=== PATIENT | female | born 1945 | race Caucasian/White ===

== ENCOUNTER 2017-10-20 06:11 | Day surgery (SDC) | payer MEDICARE ==
[~2017-10-20] VITALS: Ht 157.5 cm; Wt 60.0 kg
[2017-10-20 06:40] VITALS: BP 133/83; PULSE 65; RESP 20; TEMP 98.1; O2SAT 96
[2017-10-20] MEDS ORDERED: POVIDONE IODINE 5% (ANTISEPSIS KIT) 4 APPLICATIONS EACH NARE SCH (07:15)
[2017-10-20] MEDS ORDERED: SODIUM CHLORIDE 0.9% 1000 ML IV SCH (07:15)
[2017-10-20] MEDS ORDERED: ceFAZolin 2 GM PREMIX 50 ML - implanted port/tunneled catheter insertion IV SCH (07:15)
[2017-10-20] MEDS ORDERED: CHLORHEXIDINE GLUCONATE 2 % 1 PACK (2 CLOTHS) TOPICAL SCH (07:15)
[2017-10-20] MEDS ORDERED: VANCOMYCIN 1000 MG/NS 250 ML - implanted port/tunneled catheter IV SCH ×2 (07:15)
[2017-10-20 07:17] LABS: AUTOMATED NEUTROPHIL # 8.3 TH/MM3 (1.8-7.7); BASOPHIL # 0.1 TH/MM3 (0-0.2); BASOPHIL % 0.8 % (0.0-2.0); EOSINOPHIL # 0.1 TH/MM3 (0-0.4); EOSINOPHIL % 0.5 % (0.0-4.0); HEMATOCRIT 38.3 % (35.0-46.0); LYMPH % 16.7 % (9.0-44.0); LYMPHOCYTE # 1.9 TH/MM3 (1.0-4.8); MEAN CELL VOLUME 92.4 FL (80.0-100.0); MEAN CORPUSCULAR HEMOGLOBIN 30.8 PG (27.0-34.0); MEAN CORPUSCULAR HGB CONC 33.4 % (32.0-36.0); MONO % 9.7 % (0.0-8.0); NEUT % 72.3 % (16.0-70.0); PLATELET COUNT 239 TH/MM3 (150-450); RED BLOOD COUNT 4.15 MIL/MM3 (4.00-5.30); RED CELL DISTRIBUTION WIDTH 14.8 % (11.6-17.2); WHITE BLOOD COUNT 11.5 TH/MM3 (4.0-11.0)
[2017-10-20 07:20] LABS: HEMO FLAGS AUTO DIFF
[2017-10-20] MEDS ORDERED: MIDAZOLAM HCL 2 MG/2 ML VIAL ONE (07:39)
[2017-10-20] MEDS ORDERED: LIDOCAINE 1%/EPINEPHrine 1:100,000 SOLN 20 ML VIAL ONE (07:51)
[2017-10-20 07:56] LABS: BANDS 3 % (0-6); METAMYELOCYTES 3 % (0-1); NEUTROPHIL # MANUAL DIFF 8.6 TH/MM3 (1.8-7.7); PLATELET ESTIMATE SMEAR NORMAL (NORMAL); PLATELET MORPHOLOGY NORMAL (NORMAL); POLYS (SEG NEUTROPHILS) 69 % (16-70); SCAN/DIFF FINAL DIFF MANUAL; WBC DIFF SAMPLE 100
[2017-10-20 08:50] VITALS: BP 106/72; PULSE 79; RESP 18; TEMP 97.5; O2SAT 96
[2017-10-20 09:05] VITALS: BP 97/64; PULSE 65; RESP 20; O2SAT 96
--- NOTE | 2017-10-20 09:05 | RADRPT ---
EXAM DATE/TIME: 10/20/2017 08:49 [facility] COMPARISON: No previous studies available for comparison. INDICATIONS : Patient with a history of metastatic melanoma, needs chemotherapy. MEDICAL HISTORY : Anxiety Metastatic melanoma Migraine SURGICAL HISTORY : Facial plastic surgery Biopsy in 2017 Colonoscopy in 2009 ENCOUNTER: Initial ACUITY: 1 month PAIN SCORE: 2/10 LOCATION: Left shoulder FLUORO TIME: 0.4 minutes IMAGE SERIES: 1 SEDATION TIME: 30 minutes ACCESS: Right internal jugular vein SEDATION: 1.) 2.5 mg midazolam (Versed) IV 2.) 125 mcg fentanyl (Sublimaze) IV Prophylactic antibiotics were administered with appropriate pre-procedure timing. Vancomycin within 2 hours of procedure, Ancef (or alternative) within 1 hour of procedure. DEVICE: 1. 8 Faroese single lumen Power port PROCEDURE : 1. Continuous pulse oximetry and EKG monitoring. 2. Intravenous conscious sedation. 3. Ultrasound guidance for venous access. 4. Fluoroscopic guided implantable central venous port placement. The patient was placed supine. The neck was prepped in sterile fashion. Full sterile technique was u sed, including cap, mask, sterile gloves and gown, and a large sterile sheet. Hand hygiene and 2% ch lorhexidine Betadine was utilized per protocol for cutaneous antisepsis with appropriate dry time for site. Sterile gel and sterile probe cover were utilized for ultrasound guidance. The skin and sub cutaneous tissues were infiltrated with local anesthetic solution. Under direct ultrasound guidance, central venous access was accomplished in the targeted vessel. The ultrasound images depicting access guidance were stored and saved to PACS for permanent record. A s ubcutaneous pocket was created using blunt dissection. The port was introduced to the pocket. The c atheter tubing was fed through a subcutaneous tunnel to the venotomy site. The catheter tubing was c ut to a suitable length and then was introduced through a valved Peel-Away sheath and positioned with catheter tubing tip at the cavo-atrial junction level. The pocket incision was closed with subcutic ular Vicryl suture. Steri-Strips were applied. The port was flushed and locked with heparin solutio n per protocol. Sterile dressing was applied to the site. The patient tolerated the procedure well. Conscious sedation was performed with the prescribed dosages and duration as above in the presence of an independent trained radiology nurse to assist in the monitoring of the patient. EKG and oximetry remained stable throughout the procedure. The patient tolerated the procedure well and there were no complications. The patient was sent to post anesthesia recovery in stable condition. CONCLUSION: Uncomplicated ultrasound and fluoroscopic guided implanted central venous port catheter placement as described in detail above. An 8 Faroese Power port was placed. Cogn Norman MD on October 20, 2017 at 9:03 Board Certified Radiologist. This report was verified electronically.
[2017-10-20 09:35] VITALS: BP 98/60; PULSE 63; RESP 20; O2SAT 97
--- NOTE | 2017-10-20 09:49 | PD.RAD ---
Post Procedure Progress Note Pre Procedure Diagnosis: (1) Melanoma Post Procedure Diagnosis: (1) Melanoma Procedure Date: Oct 20, 2017 Supervising Radiologist: Cong Norman Proceduralist/Assist: Peggy Yang, RT(R)(), Koki Salgado RT(R) Anesthesia: Conscious Sedation Plan of Activity Patient to Unit: ROPU Patient Condition: Good See PACS Report for procedural detail/treatment Central Venous Access Device Procedure 1 Right Internal Jugular Infusaport Placement single lumen Cong Norman MD Oct 20, 2017 09:49
[2017-10-20] MEDS ORDERED: SODIUM CHLORIDE 0.9% FLUSH 10 ML FLUSH IVF PRN (10:00)
[2017-10-20 10:05] VITALS: BP 95/66; PULSE 65; RESP 20; O2SAT 97
[2017-10-20 10:35] VITALS: BP 110/75; PULSE 67; RESP 20; O2SAT 97
== END 2017-10-20 11:10 | disposition home or self-care (01) ==
LOC: HROP 06:11 → HRIP 06:16 → HROP 11:10
PROVIDERS: ATTEND Internal Medicine
DX: Z45.2 Encounter for adjustment and management of vascular access device (principal); C43.9 Malignant melanoma of skin, unspecified; F41.9 Anxiety disorder, unspecified
CPT/HCPCS: 36561; 76937; 77001; 85007; 85027; 99152; 99153; C1788; J1642; J2250; J3010

== ENCOUNTER 2017-11-04 13:12 | Day surgery (SDC) | payer MEDICARE ==
[2017-11-04 13:30] VITALS: BP 109/67; PULSE 78; RESP 18; TEMP 98.4; O2SAT 98
[2017-11-04] MEDS ORDERED: TRAM2TAB PO (13:41)
[2017-11-04] MEDS ORDERED: DABR75CA PO (13:41)
[2017-11-04] MEDS ORDERED: LEVE500 PO (13:41)
--- NOTE | 2017-11-04 15:55 | RADRPT ---
EXAM DATE/TIME: 11/04/2017 15:50 [facility] COMPARISON: No previous studies available for comparison. INDICATIONS : PATIENT PRESENTS WITH PAIN FROM PORT PLACEMENT. MEDICAL HISTORY : Migraine High cholesterol Anxiety SURGICAL HISTORY : Craniotomy Chin Lift ENCOUNTER: Initial ACUITY: 1 month PAIN SCORE: 110 LOCATION: Right Port FLUORO TIME: .23 minutes IMAGE SERIES: 2 CONTRAST: 10 cc Omnipaque (iohexol) 350 ACCESS: Right port PROCEDURE : 1. Access of [id number]-[id number]-dpva. 2. Port patency injection. The risks, benefits and alternatives to the procedure were explained and verbal and written consent w as obtained. The patient was placed supine. The port was prepped in sterile fashion. Full sterile t echnique was used, including cap, mask, sterile gloves and gown, and a large sterile sheet. Hand hyg iene and 2% chlorhexidine prep was utilized per protocol for cutaneous antisepsis with appropriate dr y time for site. The previously placed port was accessed and positive contrast was injected for evaluation. Injection demonstrates a patent Rxvqgt-s-Bbyu without fibrin sheath. CONCLUSION: 1. Intact Wayqiv-b-Dqge Cong Norman MD on November 04, 2017 at 15:50 Board Certified Radiologist. This report was verified electronically.
== END 2017-11-04 14:30 | disposition home or self-care (01) ==
LOC: HROP 13:12 → HRIP 13:13 → HROP 14:30
PROVIDERS: ATTEND Internal Medicine
DX: Z45.2 Encounter for adjustment and management of vascular access device (principal); C43.9 Malignant melanoma of skin, unspecified
CPT/HCPCS: 36598; J1642

== ENCOUNTER 2017-11-12 12:38 | Day surgery (SDC) | payer MEDICARE ==
[~2017-11-12 12:38] MED LIST: DABR75CA PO; LEVE500 PO; TRAM2TAB PO
[2017-11-12 13:10] VITALS: BP 150/94; PULSE 90; RESP 20; TEMP 97.9; O2SAT 99
--- NOTE | 2017-11-12 14:10 | RADRPT ---
EXAM DATE/TIME: 11/12/2017 13:47 [facility] COMPARISON: No previous studies available for comparison. INDICATIONS : Post port placement. MEDICAL HISTORY : Brain cancer. SURGICAL HISTORY : Craniotomy. ENCOUNTER: Initial ACUITY: 1 day PAIN SCORE: 10 LOCATION: Right chest FINDINGS: A single frontal expiratory view of the chest was performed. The lungs are symmetrically aerated and clear. No evidence of pneumothorax. Mediastinal structures are in the midline. The cardio-mediastinal contours and bronchopulmonary markings are unremarkable for an expiratory exam . Osseous structures are intact. The port is in excellent position. CONCLUSION: 1. Fanqam-c-Exvx is in excellent position. 2. The lungs are clear. Fran Ireland MD on November 12, 2017 at 14:07 Board Certified Radiologist. This report was verified electronically.
== END 2017-11-12 14:45 | disposition home or self-care (01) ==
LOC: HROP 12:38 → HRIP 12:46 → HROP 14:45
PROVIDERS: ATTEND Internal Medicine
DX: Z45.2 Encounter for adjustment and management of vascular access device (principal); C79.31 Secondary malignant neoplasm of brain
CPT/HCPCS: 71010; G0463; 99213

== ENCOUNTER 2017-11-27 11:19 | Inpatient (IN) | payer MEDICARE ==
[~2017-11-27] VITALS: Ht 157.5 cm; Wt 71.5 kg
[2017-11-27] MEDS ORDERED: GADODIAMIDE PF 287 MG/ML 5 ML VIAL (for RAD MRI) IV PUSH ONE (11:20)
[2017-11-27 11:49] VITALS: BP 132/66; PULSE 118; RESP 29; TEMP 101.6; O2SAT 98
[2017-11-27] MEDS ORDERED: SODIUM CHLOR 0.9% 1000 ML INJ 1,000 ML IV ONE (12:05)
[2017-11-27] MEDS ORDERED: ACETAMINOPHEN 325 MG TAB PO ONE ×2 (12:15→15:30)
[2017-11-27] MEDS ORDERED: ONDANSETRON HCL 4 MG/2 ML VIAL IV PUSH ONE (12:15)
[2017-11-27 12:29] LABS: BASOPHIL % 0.5 % (0.0-2.0); HEMATOCRIT 37.4 % (35.0-46.0); HEMOGLOBIN 12.4 GM/DL (11.6-15.3); LYMPH % 13.7 % (9.0-44.0); LYMPHOCYTE # 0.5 TH/MM3 (1.0-4.8); MEAN CELL VOLUME 89.3 FL (80.0-100.0); MEAN CORPUSCULAR HEMOGLOBIN 29.7 PG (27.0-34.0); MEAN CORPUSCULAR HGB CONC 33.3 % (32.0-36.0); MEAN PLATELET VOLUME 8.6 FL (7.0-11.0); MONO % 7.9 % (0.0-8.0); MONOCYTE # 0.3 TH/MM3 (0-0.9); NEUT % 77.9 % (16.0-70.0); PLATELET COUNT 109 TH/MM3 (150-450); RED BLOOD COUNT 4.19 MIL/MM3 (4.00-5.30); RED CELL DISTRIBUTION WIDTH 14.5 % (11.6-17.2); WHITE BLOOD COUNT 3.9 TH/MM3 (4.0-11.0)
--- NOTE | 2017-11-27 12:37 | RADRPT ---
EXAM DATE/TIME: 11/27/2017 12:15 [facility] COMPARISON: No previous studies available for comparison. INDICATIONS : Fever, weakness, short of breath MEDICAL HISTORY : melanoma, brain cancer SURGICAL HISTORY : Craniotomy. [id number] ENCOUNTER: Initial ACUITY: 1 day PAIN SCORE: Non-responsive. LOCATION: Bilateral chest FINDINGS: A single view of the chest demonstrates the lungs to be symmetrically aerated without evidence of mas s, infiltrate or effusion. The cardiomediastinal contours are unremarkable. Osseous structures are intact. Hafrmt-g-Ynrk catheter tip in the distal superior vena cava. No evidence of pneumothorax. CONCLUSION: The lungs are clear. Juan Valentin MD on November 27, 2017 at 12:34 Board Certified Radiologist. This report was verified electronically.
--- NOTE | 2017-11-27 12:40 | PD ---
HPI Chief Complaint: Altered Mental Status Time Seen by Provider: 11:56 Travel History International Travel<30 days: No Contact w/Intl Traveler<30days: No Traveled to known affect area: No History of Present Illness HPI 72-year-old female that presents to the ED for evaluation of altered mental status. Patient has a history of stage IV melanoma that has metastasized to her brain as well as to her chest. Patient takes oral chemotherapy but no IV chemotherapy or radiation. Per patient she had surgery about a month ago for resection of one of the masses on the brain by Dr. Lugo. Per patient he was done here but I do not have any records of this. Patient follows with Dr. Andrade for oncology. Per family patient has been somewhat declining since his surgery but worse for the past 48 hours since she had a fall last night. Patient hit her head but did not lose consciousness. She does have a bruise to her left eye. She denies any blurry vision or double vision. She states compliance with her medications. She was seen on November [address] Lynch at the time they were concerned about the outer mental status and they wanted to do an MRI. MRI has not been done and patient had the fall. Because of patient's continued alteration family decided to bring the patient here for evaluation. Patient states having minimal pain on her head but she does state feeling nauseous. Per family members she's been very confused and having nausea and throwing up. She cannot keep anything down. She has an allergy to oxycodone. She denies any chest pain or abdominal pain. No urinary or bowel movement issues. No cough or runny nose. No shortness of breath or chest pain. She has not noted any fevers chills or sweats but she does appear to have a fever per our thermometer. She does have a history of brain masses the bleed and has had similar symptoms before last time in August when she was admitted for similar. PFSH Past Medical History Cancer: Yes (MELANOMA, BRAIN REMOVED) Cardiovascular Problems: Yes (MURMER) Diabetes: No Endocrine: No Genitourinary: No Hepatitis: No Hiatal Hernia: No Immune Disorder: No Musculoskeletal: Yes (WEAKNESS, TREMOR) Neurologic: No Psychiatric: No Reproductive: No Respiratory: No Thyroid Disease: No Past Surgical History Abdominal Surgery: No AICD: No Cardiac Surgery: No Ear Surgery: No Endocrine Surgery: No Eye Surgery: No Genitourinary Surgery: No Gynecologic Surgery: No Joint Replacement: No Oral Surgery: No Pacemaker: No Thoracic Surgery: No Social History Alcohol Use: No Tobacco Use: No Substance Use: No Allergies-Medications (Allergen,Severity, Reaction): Coded Allergies: oxycodone (Verified Allergy, Unknown, 11/27/17) nausea vomiting Reported Meds & Prescriptions Reported Meds & Active Scripts Active Reported Mekinist (Trametinib) 0.5 Mg Tab 2 Mg PO HS Tafinlar (Dabrafenib) 75 Mg Cap 75 Mg PO BID Keppra (Levetiracetam) 500 Mg Tab 500 Mg PO BID Review of Systems Except as stated in HPI: all other systems reviewed are Neg Physical Exam Narrative GENERAL: SKIN: Warm and dry. HEAD: Atraumatic. Normocephalic. EYES: Pupils equal and round 4 mm reactive to light and accommodation. No scleral icterus. No injection or drainage. ENT: No nasal bleeding or discharge. Mucous membranes pink and moist. Tongue is midline. No uvula deviation. NECK: Trachea midline. No JVD. CARDIOVASCULAR: Regular rate and rhythm. No murmurs, S3, S4. RESPIRATORY: No accessory muscle use. Clear to auscultation. Breath sounds equal bilaterally. GASTROINTESTINAL: Abdomen soft, non-tender, nondistended. Hepatic and splenic margins not palpable. MUSCULOSKELETAL: Extremities without clubbing, cyanosis, or edema. No obvious deformities. Full range of motion of the upper and lower extremities bilaterally. 2+ pulses bilaterally. NEUROLOGICAL: Awake and alert. No obvious cranial nerve deficits. Motor grossly within normal limits. Five out of 5 muscle strength in the arms and legs. Normal speech. PSYCHIATRIC: Appropriate mood and affect; insight and judgment normal. Data Data Last Documented VS Vital Signs Date Time Temp Pulse Resp B/P (MAP) Pulse Ox O2 Delivery O2 Flow Rate FiO2 11/27/17 11:51 118 16 98 Room Air 11/27/17 11:49 101.6 132/66 (88) Orders Orders Electrocardiogram (11/27/17 11:56) Complete Blood Count With Diff (11/27/17 11:56) Comprehensive Metabolic Panel (11/27/17 11:56) Ckmb (Isoenzyme) Profile (11/27/17 11:56) Troponin I (11/27/17 11:56) Prothrombin Time / Inr (Pt) (11/27/17 11:56) Act Partial Throm Time (Ptt) (11/27/17 11:56) Blood Culture (11/27/17 11:56) Urinalysis - C+S If Indicated (11/27/17 11:56) Magnesium (Mg) (11/27/17 11:56) Thyroid Stimulating Hormone (11/27/17 11:56) Chest, Single Ap (11/27/17 11:56) Iv Access Insert/Monitor (11/27/17 11:56) Ecg Monitoring (11/27/17 11:56) Oximetry (11/27/17 11:56) Lactic Acid Sepsis Protocol (11/27/17 11:56) Acetaminophen (Tylenol) (11/27/17 12:15) Ondansetron Inj (Zofran Inj) (11/27/17 12:15) Sodium Chlor 0.9% 1000 Ml Inj (Ns 1000 M (11/27/17 12:05) Mri Brain W&W/O Contrast (11/27/17 ) Vancomycin Inj (Vancomycin Inj) (11/27/17 12:52) Cefepime Inj (Maxipime Inj) (11/27/17 12:52) Ct Brain W/O Iv Contrast(Rout) (11/27/17 ) Gadodiamide Pf Inj (Omniscan Pf Inj) (11/27/17 11:20) Influenzae A/B Antigen (11/27/17 14:55) Admit Order (Ed Use Only) (11/27/17 14:55) Labs Laboratory Tests Test 11/27/17 12:08 11/27/17 12:14 11/27/17 14:18 White Blood Count 3.9 TH/MM3 Red Blood Count 4.19 MIL/MM3 Hemoglobin 12.4 GM/DL Hematocrit 37.4 % Mean Corpuscular Volume 89.3 FL Mean Corpuscular Hemoglobin 29.7 PG Mean Corpuscular Hemoglobin Concent 33.3 % Red Cell Distribution Width 14.5 % Platelet Count 109 TH/MM3 Mean Platelet Volume 8.6 FL Neutrophils (%) (Auto) 77.9 % Lymphocytes (%) (Auto) 13.7 % Monocytes (%) (Auto) 7.9 % Eosinophils (%) (Auto) 0.0 % Basophils (%) (Auto) 0.5 % Neutrophils # (Auto) 3.0 TH/MM3 Lymphocytes # (Auto) 0.5 TH/MM3 Monocytes # (Auto) 0.3 TH/MM3 Eosinophils # (Auto) 0.0 TH/MM3 Basophils # (Auto) 0.0 TH/MM3 CBC Comment AUTO DIFF Differential Total Cells Counted 100 Neutrophils % (Manual) 47 % Band Neutrophils % 23 % Lymphocytes % 19 % Monocytes % 10 % Neutrophils # (Manual) 2.8 TH/MM3 Metamyelocytes 1 % Differential Comment FINAL DIFF MANUAL Platelet Estimate LOW Platelet Morphology Comment NORMAL Red Cell Morphology Comment NORMAL Prothrombin Time 11.8 SEC Prothromb Time International Ratio 1.2 RATIO Activated Partial Thromboplast Time 25.3 SEC Blood Urea Nitrogen 15 MG/DL Creatinine 0.81 MG/DL Random Glucose 214 MG/DL Total Protein 6.6 GM/DL Albumin 2.8 GM/DL Calcium Level 7.9 MG/DL Magnesium Level 1.7 MG/DL Alkaline Phosphatase 114 U/L Aspartate Amino Transf (AST/SGOT) 75 U/L Alanine Aminotransferase (ALT/SGPT) 40 U/L Total Bilirubin 0.4 MG/DL Sodium Level 136 MEQ/L Potassium Level 3.8 MEQ/L Chloride Level 104 MEQ/L Carbon Dioxide Level 22.8 MEQ/L Anion Gap 9 MEQ/L Estimat Glomerular Filtration Rate 70 ML/MIN Total Creatine Kinase 72 U/L Troponin I LESS THAN 0.02 NG/ML Thyroid Stimulating Hormone 3rd Gen 0.348 uIU/ML Lactic Acid Level 1.5 mmol/L Urine Color YELLOW Urine Turbidity HAZY Urine pH 5.5 Urine Specific Mumford 1.026 Urine Protein 30 mg/dL Urine Glucose (UA) NEG mg/dL Urine Ketones 10 mg/dL Urine Occult Blood NEG Urine Nitrite NEG Urine Bilirubin NEG Urine Urobilinogen LESS THAN 2.0 MG/DL Urine Leukocyte Esterase NEG Urine RBC 2 /hpf Urine WBC 4 /hpf Urine Squamous Epithelial Cells 1 /hpf Urine Amorphous Sediment FEW Urine Mucus MANY /lpf Microscopic Urinalysis Comment CULT NOT INDICATED MDM Medical Decision Making Medical Screen Exam Complete: Yes Emergency Medical Condition: Yes Medical Record Reviewed: Yes Interpretation(s) CBC & BMP Diagram 11/27/17 12:08 Total Protein 6.6, Albumin 2.8 L, Calcium Level 7.9 L, Magnesium Level 1.7, Alkaline Phosphatase 114, Aspartate Amino Transf (AST/SGOT) 75 H, Alanine Aminotransferase (ALT/SGPT) 40, Total Bilirubin 0.4 lactic acid WNL EKG showed sinus tachycardia but no sign of acute ischemia or arrhythmia rhythm and attending. troponin and CKMB negative Last Impressions Chest X-Ray 11/27/17 1156 Signed Impressions: Service Date/Time: Monday, November 27, 2017 12:15 - CONCLUSION: The lungs are clear. Juan Valentin MD Head CT 11/27/17 0000 Signed Impressions: Service Date/Time: Monday, November 27, 2017 13:09 - CONCLUSION: 1. No acute hemorrhage or mass effect. 2. 3. Postsurgical changes status post left frontal craniotomy with area of apparent encephalomalacia or possible small calcification. 4. Post operative changes status post left occipital craniotomy with focal area of apparent encephalomalacia and scarring. Jeferson Neil MD MRI of brain negative for acute disease UA negative Differential Diagnosis Brain masses versus altered mental status versus head bleed versus sepsis versus worsening metastatic disease Narrative Course 72-year-old female that presents to the ED for evaluation of altered mental status. Patient was properly examined and was found to have signs and symptoms concerning for sepsis and head injury. Patient does appear to be tachycardic and has a low-grade fever here. Patient has been having episodes of vomiting and confusion since having a fall 2 days ago. Per family she does have some confusion since having the surgery for the masses that this has progressively gotten worse and more significant in the past 48 hours since the fall. Patient does take oral chemotherapy but no IV chemotherapy. She's been taking oral chemotherapy for some time. Family why me to speak with Dr. Lynch over the phone. I spoke with Dr. Lynch over the phone who wanted MRI with contrast of the head. Labs and imaging were ordered. Patient was started IV fluids and given Tylenol for her headache as well as for her fever. Sepsis workup was started as well. Labs and imaging were done. Labs and imaging were essentially negative for acute disease. Patient still tachycardic and has a fever. Patient was started on IV antibiotics. Recommendation is for admission for further evaluation. Patient and family agree. [facility] was contacted and Dr Prajapati agrees to admission. Sepsis Criteria SIRS Criteria (2 or more): Temp > 100.9 or < 96.8, Heart rate over 90 Criteria Outcome: Meets sepsis criteria Diagnosis Primary Impression: Altered mental status Qualified Codes: R41.82 - Altered mental status, unspecified Additional Impressions: Brain mass Fever of unknown origin SIRS (systemic inflammatory response syndrome) Admitting Information Admitting Physician Requests: Admit Will Moreno Nov 27, 2017 12:40
[2017-11-27 12:46] LABS: INTERNATIONAL NORMALIZED RATIO 1.2 RATIO; PROTHROMBIN TIME - PATIENT 11.8 SEC (9.8-11.6)
[2017-11-27 12:51] LABS: ALBUMIN 2.8 GM/DL (3.4-5.0); ALT (GPT) 40 U/L (10-53); AST (GOT) 75 U/L (15-37); BICARBONATE 22.8 MEQ/L (21.0-32.0); BLOOD UREA NITROGEN 15 MG/DL (7-18); CALCIUM 7.9 MG/DL (8.5-10.1); CHLORIDE 104 MEQ/L (98-107); CREATININE 0.81 MG/DL (0.50-1.00); GLOMERULAR FILTRATION RATE 70 ML/MIN (>89); GLUCOSE,RANDOM 214 MG/DL (74-106); MAGNESIUM 1.7 MG/DL (1.5-2.5); SODIUM (NA) 136 MEQ/L (136-145)
[2017-11-27] MEDS ORDERED: VANCOMYCIN INJ 1,000 MG in SODIUM CHLOR 0.9% 250 ML INJ 250 ML IV STA (12:52)
[2017-11-27] MEDS ORDERED: CEFEPIME INJ 2,000 MG in SODIUM CHLORIDE 0.9% INJ 100 ML IV STA (12:52)
[2017-11-27] MEDS ORDERED: TRAM0.5T PO (12:55)
[2017-11-27] MEDS ORDERED: DABR75CA PO (12:55)
[2017-11-27 13:00] LABS: ALKALINE PHOSPHATASE 114 U/L (45-117); TOTAL BILIRUBIN ADULT 0.4 MG/DL (0.2-1.0); TOTAL PROTEIN 6.6 GM/DL (6.4-8.2); TROPONIN I LESS THAN 0.02 NG/ML (0.02-0.05)
--- NOTE | 2017-11-27 13:30 | RADRPT ---
EXAM DATE/TIME: 11/27/2017 13:09 [facility] COMPARISON: No previous studies available for comparison. INDICATIONS : Altered mental status, declining past 3 days. Fall with eye bruising left eye. RADIATION DOSE: 56.37 CTDIvol (mGy) MEDICAL HISTORY : Cardiovascular disease. Brain cancer SURGICAL HISTORY : Brain tumor removal. ENCOUNTER: Initial ACUITY: 3 days PAIN SCALE: 0/10 LOCATION: Left frontal craniotomy. TECHNIQUE: Multiple contiguous axial images were obtained of the head. Using automated exposure control and adj ustment of the mA and/or kV according to patient size, radiation dose was kept as low as reasonably a chievable to obtain optimal diagnostic quality images. DICOM format image data is available electro nically for review and comparison. FINDINGS: CEREBRUM: The ventricles are normal for age with mild atrophic change. Postoperative changes are noted involvin g the left frontal lobe with 2.4 x 2.2 cm low-attenuation area with small focal area of high density which may represent subtle calcification. No evidence of midline shift, mass lesion, hemorrhage or ac penobscot infarction. No extra-axial fluid collections are seen. POSTERIOR FOSSA: Postoperative changes are noted involving the left cerebellar hemisphere with apparent scarring. The brainstem is intact in appearance. The 4th ventricle is midline. The cerebellopontine angle is unrem arkable. EXTRACRANIAL: The visualized portion of the orbits is intact. SKULL: The calvaria is intact. No evidence of skull fracture. There are postoperative changes status post l eft frontal craniotomy. The patient is also status post left occipital craniotomy. CONCLUSION: 1. No acute hemorrhage or mass effect. 2. 3. Postsurgical changes status post left frontal craniotomy with area of apparent encephalomalacia or possible small calcification. 4. Post operative changes status post left occipital craniotomy with focal area of apparent encephalo malacia and scarring. Jeferson Neil MD on November 27, 2017 at 13:25 Board Certified Radiologist. This report was verified electronically.
[2017-11-27 13:39] LABS: BANDS 23 % (0-6); LYMPHOCYTES 19 % (9-44); METAMYELOCYTES 1 % (0-1); MONOCYTES 10 % (0-8); NEUTROPHIL # MANUAL DIFF 2.8 TH/MM3 (1.8-7.7); POLYS (SEG NEUTROPHILS) 47 % (16-70)
[2017-11-27 14:30] LABS: AMORPHOUS SEDIMENT, URINE FEW; BILIRUBIN, URINE NEG (NEG); BLOOD, URINE NEG (NEG); GLUCOSE,URINE NEG (NEG); KETONE, URINE 10 mg/dL (NEG); MUCUS URINE MANY /lpf (OCC); NITRITE,URINE NEG (NEG); PH, URINE 5.5 (5.0-8.5); SQUAMOUS EPITHELIAL CELL URINE 1 /hpf (0-5); URINE COLOR YELLOW (YELLW/STRAW); URINE LEUKOCYTE ESTERASE NEG (NEG)
--- NOTE | 2017-11-27 14:45 | RADRPT ---
EXAM DATE/TIME: 11/27/2017 13:31 [facility] COMPARISON: CT BRAIN W/O CONTRAST, November 27, 2017, 13:09. INDICATIONS : Metastatic disease. CONTRAST: 12 cc Omniscan (gadodiamide) IV MEDICAL HISTORY : Melanoma of brain. SURGICAL HISTORY : Craniotomy. ENCOUNTER: Initial ACUITY: 2 day PAIN SCORE: 0/10 LOCATION: brain TECHNIQUE: Multiplanar, multisequence MRI of the brain was performed both prior to and following the administrat ion of paramagnetic contrast. FINDINGS: Evidence of prior craniotomy in the left right convexity frontal region and in the left parasagittal suboccipital region with porencephalic areas at the surgical sites. There is no abnormal enhancement are not either surgical cavity and no abnormal areas of enhancement the supra-or infratentorial brain . No abnormal dural enhancement seen. No evidence of acute blood products. Visualized structures of t he orbits and paranasal sinuses are grossly unremarkable. No focal areas of restricted diffusion. CONCLUSION: No evidence of recurrent metastatic disease. Juan Valentin MD on November 27, 2017 at 14:31 Board Certified Radiologist. This report was verified electronically.
--- NOTE | 2017-11-27 15:26 | HHI.HP ---
[place] [facility] Primary Care Physician Bird Lynch MD Admission Diagnosis altered mental status, fever of unknown etiology, cancer patient Travel History International Travel<30 Days: No Contact w/Intl Traveler <30 Da: No Traveled to Known Affected Are: No History of Present Illness Mrs. 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 She was previously hospitalized in August 2017 when the metastatic disease was initially found with a mass in the left frontal region and in the left cerebellar hemisphere. During that admission she underwent surgical resection of the two masses in two separate surgeries with pathology revealing metastatic melanoma. She has been following with Dr. Lynch for Oncology. She has been on Tremetinib and Dabrafinib. She had an [id number]-gauk placed following that admission. She reports that she has been having issues with her port since it was placed and reports that it has been evaluated in radiology twice per the pts . They report that they have had issues with malposition of the port. There has been attempts to access the port which has been problematic per the pt. But it was able to be accessed three days ago to draw blood out of it at Dr. Perez office. She was seen by Dr. Lynch on 11/25 and at that time was complaining of significant headaches and was being sent for an MRI of the brain. After that appt she fell at home. She reports that she lost her balance in the bathroom and fell and hit her head. She has been nauseated for the last 3 days and has not been eating much. Denies any cough, congestion, sore throat, diarrhea, abdominal pain. This morning the pt was very confused, didn't know where she was or what was going on this morning. Her brought her to the ED for evaluation. Pt was noted to have a fever upon arrival to the ED today and has started shivering. Her labs in the ED noted WBC count 3.9 with 23% bands. Her CXR in the ED was clear. Head CT noted no acute hemorrhage or mass effect, postsurgical changes status post left frontal craniotomy with area of apparent encephalomalacia or possible small calcification, and post operative changes status post left occipital craniotomy with focal area of apparent encephalomalacia and scarring. . MRI of the brain was performed in the ED with no evidence of recurrent metastatic disease. Review of Systems Constitutional: COMPLAINS OF: Fever, Chills Eyes: DENIES: Vision loss Ears, nose, mouth, throat: DENIES: Hearing loss Respiratory: DENIES: Cough, Shortness of breath Cardiovascular: DENIES: Chest pain, Palpitations, Dyspnea on Exertion, Lower Extremity Edema Gastrointestinal: DENIES: Abdominal pain, Constipation, Diarrhea, Nausea, Vomiting Genitourinary: DENIES: Hematuria, Dysuria Musculoskeletal: DENIES: Back pain, Neck pain Integumentary: DENIES: Rash Neurologic: COMPLAINS OF: Headache Psychiatric: COMPLAINS OF: Confusion Past Family Social History Past Medical History BRAF positive metastatic melanoma Anxiety Migraine headaches Hyperlipidemia Past Surgical History Suboccipital craniectomy with resection of the posterior fossa lesion on Ventriculostomy tube placed and removed on 09/28/17 Left frontal craniotomy for resection of neoplasm on 10/01/17 Excision of melanoma from the [facility] Reported Medications Mekinist (Trametinib) 0.5 Mg Tab 2 Mg PO HS Tafinlar (Dabrafenib) 75 Mg Cap 75 Mg PO BID Keppra (Levetiracetam) 500 Mg Tab 500 Mg PO BID Allergies: Coded Allergies: oxycodone (Verified Allergy, Unknown, 11/27/17) nausea vomiting Family History Noncontributory Social History Denies any alcohol, tobacco or illicit drug use Physical Exam Vital Signs Vital Signs Date Time Temp Pulse Resp B/P (MAP) Pulse Ox O2 Delivery O2 Flow Rate FiO2 11/27/17 11:51 118 16 98 Room Air 11/27/17 11:49 101.6 118 29 132/66 (88) 98 Room Air Physical Exam GENERAL: This is a well-nourished, well-developed patient, pt shaking/shivering during examination. SKIN: No rashes, ecchymoses or lesions. Cool and dry. HEENT: Atraumatic. Normocephalic. No temporal or scalp tenderness. Bruising around the left eye. No scleral icterus. No injection or drainage. Airway patent. NECK: Trachea midline, supple, nontender, no meningeal signs. CARDIO: Regular, tachy. RESP: CTA bilaterally. No wheezes, rales, or rhonchi. Port in right chest. ABD: +BS, soft, non-tender, nondistended. EXT: Extremities without clubbing, cyanosis, or edema. NEURO: Awake and alert. Motor and sensory grossly within normal limits. Normal speech. Laboratory Laboratory Tests Test 11/27/17 12:08 11/27/17 12:14 11/27/17 14:18 White Blood Count 3.9 Red Blood Count 4.19 Hemoglobin 12.4 Hematocrit 37.4 Mean Corpuscular Volume 89.3 Mean Corpuscular Hemoglobin 29.7 Mean Corpuscular Hemoglobin Concent 33.3 Red Cell Distribution Width 14.5 Platelet Count 109 Mean Platelet Volume 8.6 Neutrophils (%) (Auto) 77.9 Lymphocytes (%) (Auto) 13.7 Monocytes (%) (Auto) 7.9 Eosinophils (%) (Auto) 0.0 Basophils (%) (Auto) 0.5 Neutrophils # (Auto) 3.0 Lymphocytes # (Auto) 0.5 Monocytes # (Auto) 0.3 Eosinophils # (Auto) 0.0 Basophils # (Auto) 0.0 CBC Comment AUTO DIFF Differential Total Cells Counted 100 Neutrophils % (Manual) 47 Band Neutrophils % 23 Lymphocytes % 19 Monocytes % 10 Neutrophils # (Manual) 2.8 Metamyelocytes 1 Differential Comment FINAL DIFF MANUAL Platelet Estimate LOW Platelet Morphology Comment NORMAL Red Cell Morphology Comment NORMAL Prothrombin Time 11.8 Prothromb Time International Ratio 1.2 Activated Partial Thromboplast Time 25.3 Blood Urea Nitrogen 15 Creatinine 0.81 Random Glucose 214 Total Protein 6.6 Albumin 2.8 Calcium Level 7.9 Magnesium Level 1.7 Alkaline Phosphatase 114 Aspartate Amino Transf (AST/SGOT) 75 Alanine Aminotransferase (ALT/SGPT) 40 Total Bilirubin 0.4 Sodium Level 136 Potassium Level 3.8 Chloride Level 104 Carbon Dioxide Level 22.8 Anion Gap 9 Estimat Glomerular Filtration Rate 70 Total Creatine Kinase 72 Troponin I LESS THAN 0.02 Thyroid Stimulating Hormone 3rd Gen 0.348 Lactic Acid Level 1.5 Urine Color YELLOW Urine Turbidity HAZY Urine pH 5.5 Urine Specific [place] 1.026 Urine Protein 30 Urine Glucose (UA) NEG Urine Ketones 10 Urine Occult Blood NEG Urine Nitrite NEG Urine Bilirubin NEG Urine Urobilinogen LESS THAN 2.0 Urine Leukocyte Esterase NEG Urine RBC 2 Urine WBC 4 Urine Squamous Epithelial Cells 1 Urine Amorphous Sediment FEW Urine Mucus MANY Microscopic Urinalysis Comment CULT NOT INDICATED Date/Time Source Procedure Growth Status 11/27/17 12:14 Blood Peripheral Aerobic Blood Culture Pending Received 11/27/17 12:14 Blood Peripheral Anaerobic Blood Culture Pending Received Result Diagram: 11/27/17 1208 11/27/17 1208 Imaging Last Impressions Chest X-Ray 11/27/17 1156 Signed Impressions: Service Date/Time: Monday, November 27, 2017 12:15 - CONCLUSION: The lungs are clear. Juan Valentin MD Head CT 11/27/17 0000 Signed Impressions: Service Date/Time: Monday, November 27, 2017 13:09 - CONCLUSION: 1. No acute hemorrhage or mass effect. 2. 3. Postsurgical changes status post left frontal craniotomy with area of apparent encephalomalacia or possible small calcification. 4. Post operative changes status post left occipital craniotomy with focal area of apparent encephalomalacia and scarring. Jeferson Neil MD Brain MRI 11/27/17 0000 Signed Impressions: Service Date/Time: Monday, November 27, 2017 13:31 - CONCLUSION: No evidence of recurrent metastatic disease. Juan Valentin MD Caprini VTE Risk Assessment Caprini VTE Risk Assessment: Mod/High Risk (score >= 2) Caprini Risk Assessment Model Point Value = 1 Point Value = 2 Point Value = 3 Point Value = 5 Age 41-60 Minor surgery BMI > 25 kg/m2 Swollen legs Varicose veins or History of unexplained or recurrent spontaneous Oral contraceptives or hormone replacement Sepsis (< 1 month) Serious lung disease, including pneumonia (< 1 month) Abnormal pulmonary function Acute myocardial infarction Congestive heart failure (< 1 month) History of inflammatory bowel disease Medical patient at bed rest Age 61-74 Arthroscopic surgery Major open surgery (> 45 min) Laparoscopic surgery (> 45 min) Malignancy Confined to bed (> 72 hours) Immobilizing plaster cast Central venous access Age >= 75 History of VTE Family history of VTE Factor V Leiden Prothrombin [id number] Lupus anticoagulant Anticardiolipin antibodies Elevated serum homocysteine Heparin-induced thrombocytopenia Other congenital or acquired thrombophilia Stroke (< 1 month) Elective arthroplasty Hip, pelvis, or leg fracture Acute spinal cord injury (< 1 month) Prophylaxis Regimen Total Risk Factor Score Risk Level Prophylaxis Regimen 0-1 Low Early ambulation 2 Moderate Order ONE of the following: *Sequential Compression Device (SCD) *Heparin 5000 units SQ BID 3-4 Higher Order ONE of the following medications: *Heparin 5000 units SQ TID *Enoxaparin/Lovenox 40 mg SQ daily (WT < 150 kg, CrCl > 30 mL/min) *Enoxaparin/Lovenox 30 mg SQ daily (WT < 150 kg, CrCl > 10-29 mL/min) *Enoxaparin/Lovenox 30 mg SQ BID (WT < 150 kg, CrCl > 30 mL/min) AND/OR *Sequential Compression Device (SCD) 5 or more Highest Order ONE of the following medications: *Heparin 5000 units SQ TID (Preferred with Epidurals) *Enoxaparin/Lovenox 40 mg SQ daily (WT < 150 kg, CrCl > 30 mL/min) *Enoxaparin/Lovenox 30 mg SQ daily (WT < 150 kg, CrCl > 10-29 mL/min) *Enoxaparin/Lovenox 30 mg SQ BID (WT < 150 kg, CrCl > 30 mL/min) AND *Sequential Compression Device (SCD) Assessment and Plan Problem List: (1) Fever and chills ICD Codes: R50.9 - Fever, unspecified Status: Acute Plan: Pt is a 72 y/o WF with 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 She was previously hospitalized in August 2017 when the metastatic disease was initially found with a mass in the left frontal region and in the left cerebellar hemisphere. During that admission she underwent surgical resection of the two masses in two separate surgeries with pathology revealing metastatic melanoma. She has been following with Dr. Lynch for Oncology. She has been on Tremetinib and Dabrafinib. She had an [id number] placed following that admission. She reports that she has been having issues with her port since it was placed and reports that it has been evaluated in radiology twice per the pts . They report that they have had issues with malposition of the port. There has been attempts to access the port which has been problematic per the pt. But it was able to be accessed three days ago to draw blood out of it at Dr. Perez office. She was seen by Dr. Lynch on 11/25 and at that time was complaining of significant headaches and was being sent for an MRI of the brain. After that appt she fell at home. She reports that she lost her balance in the bathroom and fell and hit her head. She has been nauseated for the last 3 days and has not been eating much. Altered Mental Status Fever/chills, possible sepsis ?port infection - The pt woke up this morning and was very confused, and didn't know where she was or what was going on this morning, which prompted her evaluation in the ED for evaluation. - Pt was noted to have a fever upon arrival to the ED of 101 and has started shivering. - Her labs in the ED noted WBC count 3.9 with 23% bands. - Her CXR in the ED was clear. - Blood cultures were drawn in the ED - Pts port was access a few days before symptoms of AMS and fever started so much consider port infection - Pt was given Vancomycin and cefepime in the ED - We will continued on Zosyn and Vancomycin with pharmacy to consult - Monitor labs a clinical status - Check 2D echo - Telemetry - Tylenol PRN - Zofran PRN - Supportive care - DVT prophylaxis with SCDs for now BRAF positive metastatic melanoma - She has been following with Dr. Lynch for Oncology. - Consult Dr. Lynch - She has been on Tremetinib and Dabrafinib. - Head CT (11/27) --> No acute hemorrhage or mass effect, postsurgical changes status post left frontal craniotomy with area of apparent encephalomalacia or possible small calcification, and post operative changes status post left occipital craniotomy with focal area of apparent encephalomalacia and scarring. - MRI of the brain (11/27) --> No evidence of recurrent metastatic disease. - Cont. home meds (2) Altered mental status ICD Codes: R41.82 - Altered mental status, unspecified Status: Acute (3) Melanoma ICD Codes: C43.9 - Malignant melanoma of skin, unspecified Status: Chronic Physician Certification 2 Midnight Certification Type: Admission for Inpatient Services Order for Inpatient Services The services are ordered in accordance with Medicare regulations or non- Medicare payer requirements, as applicable. In the case of services not specified as inpatient-only, they are appropriately provided as inpatient services in accordance with the 2-midnight benchmark. Estimated LOS (days): 3 3 days is the estimated time the patient will need to remain in the hospital, assuming treatment plan goals are met and no additional complications. Post-Hospital Plan: Not yet determined Problem Qualifiers (1) Altered mental status: Qualified Codes: R41.82 - Altered mental status, unspecified Shira Hines Nov 27, 2017 15:26
[2017-11-27] MEDS ORDERED: Vancomycin Consult Pharmacy 1 EA OTHER SCH (15:30)
[2017-11-27] MEDS ORDERED: PIPERACIL-TAZO 3.375 GM PREMIX 50 ML IV SCH (15:30)
[2017-11-27] MEDS ORDERED: ONDANSETRON HCL 4 MG/2 ML VIAL IV PRN (15:30)
[2017-11-27 16:32] VITALS: BP 101/51; PULSE 122; RESP 16; TEMP 102.9; O2SAT 96
[2017-11-27] MEDS: SODIUM CHLOR 0.9% 1000 ML INJ 1,000 ML IV SCH (16:58)
[2017-11-27 20:00] VITALS: PULSE 101
[2017-11-27 20:15] VITALS: BP 92/52; PULSE 104; RESP 20; TEMP 100.7; O2SAT 95
[2017-11-27] MEDS: ACETAMINOPHEN 325 MG TAB PO PRN (20:27)
[2017-11-27] MEDS: levETIRAcetam 500 MG TAB PO SCH (20:27)
[2017-11-27] MEDS: PIPERACIL-TAZO 3.375 GM PREMIX 50 ML IV SCH (20:27)
[2017-11-27] MEDS: MEKINIST 2 MG PO SCH (20:28)
[2017-11-27] MEDS: TAFINLAR 75 MG PO SCH (20:29)
[2017-11-27 22:49] VITALS: BP 98/52; PULSE 115
[2017-11-27 23:39] VITALS: TEMP 102.8; O2SAT 96
[2017-11-28] VITALS (10 sets, daily range): BP systolic 81–103; BP diastolic 53–59; PULSE 82–112; RESP 16–20; TEMP 97.4–101.7; O2SAT 93–96
[2017-11-28] MEDS: PIPERACIL-TAZO 3.375 GM PREMIX 50 ML IV SCH ×4 (04:08→21:22)
[2017-11-28] MEDS: SODIUM CHLOR 0.9% 1000 ML INJ 1,000 ML IV SCH ×2 (07:39→17:00)
[2017-11-28 08:14] LABS: AUTOMATED NEUTROPHIL # 8.1 TH/MM3 (1.8-7.7); BASOPHIL % 0.2 % (0.0-2.0); EOSINOPHIL % 0.2 % (0.0-4.0); HEMATOCRIT 35.6 % (35.0-46.0); HEMOGLOBIN 11.9 GM/DL (11.6-15.3); LYMPH % 7.5 % (9.0-44.0); LYMPHOCYTE # 0.7 TH/MM3 (1.0-4.8); MEAN CELL VOLUME 90.2 FL (80.0-100.0); MEAN CORPUSCULAR HEMOGLOBIN 30.2 PG (27.0-34.0); MEAN CORPUSCULAR HGB CONC 33.4 % (32.0-36.0); MEAN PLATELET VOLUME 9.7 FL (7.0-11.0); MONO % 1.6 % (0.0-8.0); MONOCYTE # 0.1 TH/MM3 (0-0.9); NEUT % 90.5 % (16.0-70.0); PLATELET COUNT 45 TH/MM3 (150-450); RED BLOOD COUNT 3.94 MIL/MM3 (4.00-5.30); RED CELL DISTRIBUTION WIDTH 14.9 % (11.6-17.2); WHITE BLOOD COUNT 8.9 TH/MM3 (4.0-11.0)
[2017-11-28] MEDS: ACETAMINOPHEN 325 MG TAB PO PRN ×2 (09:01)
[2017-11-28 09:02] LABS: BICARBONATE 21.8 MEQ/L (21.0-32.0); CREATININE 0.93 MG/DL (0.50-1.00); MAGNESIUM 1.6 MG/DL (1.5-2.5)
[2017-11-28] MEDS: levETIRAcetam 500 MG TAB PO SCH ×2 (09:02→21:22)
[2017-11-28] MEDS: DEXAMETHASONE 4 MG TAB PO SCH ×2 (09:02→21:22)
[2017-11-28] MEDS: TAFINLAR 75 MG PO SCH ×2 (10:15→21:17)
[2017-11-28] MEDS ORDERED: DIATRIZOATE MEGLUM/DIATRIZOATE SOD 9 ML CUP PO ONE (10:15)
[2017-11-28 10:17] LABS: BANDS 82 % (0-6); LYMPHOCYTES 5 % (9-44); METAMYELOCYTES 1 % (0-1); MONOCYTES 2 % (0-8); NEUTROPHIL # MANUAL DIFF 8.3 TH/MM3 (1.8-7.7); POLYS (SEG NEUTROPHILS) 10 % (16-70)
--- NOTE | 2017-11-28 10:25 | HHI.PR ---
Subjective Remarks Pt started having loose stools last night, 2 BMs last night and one this morning. Denies any abd pain Pt has been febrile with Tmax 102.8 overnight Objective Vitals Vital Signs Date Time Temp Pulse Resp B/P (MAP) Pulse Ox O2 Delivery O2 Flow Rate FiO2 11/28/17 08:00 101.7 111 16 103/55 (71) 93 11/28/17 04:23 99 20 92/53 (66) 94 11/28/17 04:04 99.5 11/28/17 01:13 101.6 11/27/17 23:39 102.8 96 11/27/17 22:49 115 98/52 (67) 11/27/17 20:15 100.7 104 20 92/52 (65) 95 11/27/17 20:00 101 11/27/17 16:32 102.9 122 16 101/51 (68) 96 11/27/17 11:51 118 16 98 Room Air 11/27/17 11:49 101.6 118 29 132/66 (88) 98 Room Air 11/28/17 11/28/17 11/29/17 15:00 23:00 07:00 Intake Total 214 ml Balance 214 ml Intake IV Total 214 ml Result Diagram: 11/28/17 0658 11/28/17 0658 Other Results Laboratory Tests Test 11/27/17 12:08 11/27/17 12:14 11/27/17 14:18 11/28/17 06:58 White Blood Count 3.9 TH/MM3 8.9 TH/MM3 Red Blood Count 4.19 MIL/MM3 3.94 MIL/MM3 Hemoglobin 12.4 GM/DL 11.9 GM/DL Hematocrit 37.4 % 35.6 % Mean Corpuscular Volume 89.3 FL 90.2 FL Mean Corpuscular Hemoglobin 29.7 PG 30.2 PG Mean Corpuscular Hemoglobin Concent 33.3 % 33.4 % Red Cell Distribution Width 14.5 % 14.9 % Platelet Count 109 TH/MM3 45 TH/MM3 Mean Platelet Volume 8.6 FL 9.7 FL Neutrophils (%) (Auto) 77.9 % 90.5 % Lymphocytes (%) (Auto) 13.7 % 7.5 % Monocytes (%) (Auto) 7.9 % 1.6 % Eosinophils (%) (Auto) 0.0 % 0.2 % Basophils (%) (Auto) 0.5 % 0.2 % Neutrophils # (Auto) 3.0 TH/MM3 8.1 TH/MM3 Lymphocytes # (Auto) 0.5 TH/MM3 0.7 TH/MM3 Monocytes # (Auto) 0.3 TH/MM3 0.1 TH/MM3 Eosinophils # (Auto) 0.0 TH/MM3 0.0 TH/MM3 Basophils # (Auto) 0.0 TH/MM3 0.0 TH/MM3 CBC Comment AUTO DIFF AUTO DIFF Differential Total Cells Counted 100 100 Neutrophils % (Manual) 47 % 10 % Band Neutrophils % 23 % 82 % Lymphocytes % 19 % 5 % Monocytes % 10 % 2 % Neutrophils # (Manual) 2.8 TH/MM3 8.3 TH/MM3 Metamyelocytes 1 % 1 % Differential Comment FINAL DIFF MANUAL FINAL DIFF MANUAL Platelet Estimate LOW LOW Platelet Morphology Comment NORMAL NORMAL Red Cell Morphology Comment NORMAL NORMAL Prothrombin Time 11.8 SEC Prothromb Time International Ratio 1.2 RATIO Activated Partial Thromboplast Time 25.3 SEC Blood Urea Nitrogen 15 MG/DL 18 MG/DL Creatinine 0.81 MG/DL 0.93 MG/DL Random Glucose 214 MG/DL 111 MG/DL Total Protein 6.6 GM/DL Albumin 2.8 GM/DL Calcium Level 7.9 MG/DL 8.0 MG/DL Magnesium Level 1.7 MG/DL 1.6 MG/DL Alkaline Phosphatase 114 U/L Aspartate Amino Transf (AST/SGOT) 75 U/L Alanine Aminotransferase (ALT/SGPT) 40 U/L Total Bilirubin 0.4 MG/DL Sodium Level 136 MEQ/L 142 MEQ/L Potassium Level 3.8 MEQ/L 3.6 MEQ/L Chloride Level 104 MEQ/L 109 MEQ/L Carbon Dioxide Level 22.8 MEQ/L 21.8 MEQ/L Anion Gap 9 MEQ/L 11 MEQ/L Estimat Glomerular Filtration Rate 70 ML/MIN 59 ML/MIN Total Creatine Kinase 72 U/L Troponin I LESS THAN 0.02 NG/ML Thyroid Stimulating Hormone 3rd Gen 0.348 uIU/ML Lactic Acid Level 1.5 mmol/L Urine Color YELLOW Urine Turbidity HAZY Urine pH 5.5 Urine Specific [place] 1.026 Urine Protein 30 mg/dL Urine Glucose (UA) NEG mg/dL Urine Ketones 10 mg/dL Urine Occult Blood NEG Urine Nitrite NEG Urine Bilirubin NEG Urine Urobilinogen LESS THAN 2.0 MG/DL Urine Leukocyte Esterase NEG Urine RBC 2 /hpf Urine WBC 4 /hpf Urine Squamous Epithelial Cells 1 /hpf Urine Amorphous Sediment FEW Urine Mucus MANY /lpf Microscopic Urinalysis Comment CULT NOT INDICATED Imaging Last Impressions Chest X-Ray 11/27/17 1156 Signed Impressions: Service Date/Time: Monday, November 27, 2017 12:15 - CONCLUSION: The lungs are clear. Juan Valentin MD Head CT 11/27/17 0000 Signed Impressions: Service Date/Time: Monday, November 27, 2017 13:09 - CONCLUSION: 1. No acute hemorrhage or mass effect. 2. 3. Postsurgical changes status post left frontal craniotomy with area of apparent encephalomalacia or possible small calcification. 4. Post operative changes status post left occipital craniotomy with focal area of apparent encephalomalacia and scarring. Jeferson Neil MD Brain MRI 11/27/17 0000 Signed Impressions: Service Date/Time: Monday, November 27, 2017 13:31 - CONCLUSION: No evidence of recurrent metastatic disease. 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 She was previously hospitalized in August 2017 when the metastatic disease was initially found with a mass in the left frontal region and in the left cerebellar hemisphere. During that admission she underwent surgical resection of the two masses in two separate surgeries with pathology revealing metastatic melanoma. She has been following with Dr. Lynch for Oncology. She has been on Tremetinib and Dabrafinib. She had an [id number] placed following that admission. She reports that she has been having issues with her port since it was placed and reports that it has been evaluated in radiology twice per the pts . They report that they have had issues with malposition of the port. There has been attempts to access the port which has been problematic per the pt. But it was able to be accessed three days ago to draw blood out of it at Dr. Perez office. She was seen by Dr. Lynch on 11/25 and at that time was complaining of significant headaches and was being sent for an MRI of the brain. After that appt she fell at home. She reports that she lost her balance in the bathroom and fell and hit her head. She has been nauseated for the last 3 days and has not been eating much. Altered Mental Status Fever/chills, possible sepsis - The pt woke up this morning and was very confused, and didn't know where she was or what was going on this morning, which prompted her evaluation in the ED for evaluation. - Pt was noted to have a fever upon arrival to the ED of 101 and has started shivering. - Her labs in the ED noted WBC count 3.9 with 23% bands. - Her CXR in the ED was clear. - Blood cultures were drawn in the ED are pending - Pts port was access a few days before symptoms of AMS and fever started so must consider port infection - Pt was given Vancomycin and cefepime in the ED - We will continued on Zosyn and Vancomycin with pharmacy to consult - Overnight on 11/28 pt developed diarrhea, check stool studies for C. diff and culture - Pt was seen by Dr. Lynch this morning and a CT Chest/Abd/Pelvis has been ordered - Monitor labs a clinical status - Check 2D echo - Telemetry - Tylenol PRN - Zofran PRN - Supportive care - DVT prophylaxis with SCDs for now BRAF positive metastatic melanoma - She has been following with Dr. Lynch for Oncology. - Appreciate consult from Dr. Lynch - She has been on Tremetinib and Dabrafinib. - Head CT (11/27) --> No acute hemorrhage or mass effect, postsurgical changes status post left frontal craniotomy with area of apparent encephalomalacia or possible small calcification, and post operative changes status post left occipital craniotomy with focal area of apparent encephalomalacia and scarring. - MRI of the brain (11/27) --> No evidence of recurrent metastatic disease. - Cont. home meds (2) Altered mental status ICD Codes: R41.82 - Altered mental status, unspecified Status: Acute (3) Melanoma ICD Codes: C43.9 - Malignant melanoma of skin, unspecified Status: Chronic Assessment and Plan Patient examined. Assessment and plan formulated with Shira Hines PA-C. I agree with the above. fever. possible port infection/sepsis. ?80bands. ct c/a/p ordered by oncology. f/u diarrhea. might be abx related. but r/o c.diff cont abx. f/u cx's updated family. Problem Qualifiers (1) Altered mental status: Qualified Codes: R41.82 - Altered mental status, unspecified Shira Hines Nov 28, 2017 10:25 Linwood Ortega MD Nov 28, 2017 11:55
[2017-11-28] MEDS: DRONABINOL 2.5 MG CAP PO SCH ×2 (11:00→17:37)
--- NOTE | 2017-11-28 12:14 | PD.ONC.PN ---
Subjective Subjective Remarks Tmax 101.7 this am. "I'm having a lot of diarrhea" Reports she has a mild headache that has been ongoing Denies SOB Objective Data Date Time Temp Pulse Resp B/P (MAP) Pulse Ox O2 Delivery O2 Flow Rate FiO2 11/28/17 08:00 101.7 111 16 103/55 (71) 93 11/28/17 04:23 99 20 92/53 (66) 94 11/28/17 04:04 99.5 11/28/17 01:13 101.6 11/27/17 23:39 102.8 96 11/27/17 22:49 115 98/52 (67) 11/27/17 20:15 100.7 104 20 92/52 (65) 95 11/27/17 20:00 101 11/27/17 16:32 102.9 122 16 101/51 (68) 96 11/28/17 11/28/17 11/28/17 07:00 15:00 23:00 Intake Total 441 ml 214 ml Balance 441 ml 214 ml Result Diagram: 11/28/17 0658 11/28/17 0658 Laboratory Results Laboratory Tests Test 11/27/17 12:08 11/27/17 12:14 11/27/17 14:18 11/28/17 06:58 White Blood Count 3.9 TH/MM3 8.9 TH/MM3 Red Blood Count 4.19 MIL/MM3 3.94 MIL/MM3 Hemoglobin 12.4 GM/DL 11.9 GM/DL Hematocrit 37.4 % 35.6 % Mean Corpuscular Volume 89.3 FL 90.2 FL Mean Corpuscular Hemoglobin 29.7 PG 30.2 PG Mean Corpuscular Hemoglobin Concent 33.3 % 33.4 % Red Cell Distribution Width 14.5 % 14.9 % Platelet Count 109 TH/MM3 45 TH/MM3 Mean Platelet Volume 8.6 FL 9.7 FL Neutrophils (%) (Auto) 77.9 % 90.5 % Lymphocytes (%) (Auto) 13.7 % 7.5 % Monocytes (%) (Auto) 7.9 % 1.6 % Eosinophils (%) (Auto) 0.0 % 0.2 % Basophils (%) (Auto) 0.5 % 0.2 % Neutrophils # (Auto) 3.0 TH/MM3 8.1 TH/MM3 Lymphocytes # (Auto) 0.5 TH/MM3 0.7 TH/MM3 Monocytes # (Auto) 0.3 TH/MM3 0.1 TH/MM3 Eosinophils # (Auto) 0.0 TH/MM3 0.0 TH/MM3 Basophils # (Auto) 0.0 TH/MM3 0.0 TH/MM3 CBC Comment AUTO DIFF AUTO DIFF Differential Total Cells Counted 100 100 Neutrophils % (Manual) 47 % 10 % Band Neutrophils % 23 % 82 % Lymphocytes % 19 % 5 % Monocytes % 10 % 2 % Neutrophils # (Manual) 2.8 TH/MM3 8.3 TH/MM3 Metamyelocytes 1 % 1 % Differential Comment FINAL DIFF MANUAL FINAL DIFF MANUAL Platelet Estimate LOW LOW Platelet Morphology Comment NORMAL NORMAL Red Cell Morphology Comment NORMAL NORMAL Prothrombin Time 11.8 SEC Prothromb Time International Ratio 1.2 RATIO Activated Partial Thromboplast Time 25.3 SEC Blood Urea Nitrogen 15 MG/DL 18 MG/DL Creatinine 0.81 MG/DL 0.93 MG/DL Random Glucose 214 MG/DL 111 MG/DL Total Protein 6.6 GM/DL Albumin 2.8 GM/DL Calcium Level 7.9 MG/DL 8.0 MG/DL Magnesium Level 1.7 MG/DL 1.6 MG/DL Alkaline Phosphatase 114 U/L Aspartate Amino Transf (AST/SGOT) 75 U/L Alanine Aminotransferase (ALT/SGPT) 40 U/L Total Bilirubin 0.4 MG/DL Sodium Level 136 MEQ/L 142 MEQ/L Potassium Level 3.8 MEQ/L 3.6 MEQ/L Chloride Level 104 MEQ/L 109 MEQ/L Carbon Dioxide Level 22.8 MEQ/L 21.8 MEQ/L Anion Gap 9 MEQ/L 11 MEQ/L Estimat Glomerular Filtration Rate 70 ML/MIN 59 ML/MIN Total Creatine Kinase 72 U/L Troponin I LESS THAN 0.02 NG/ML Thyroid Stimulating Hormone 3rd Gen 0.348 uIU/ML Lactic Acid Level 1.5 mmol/L Urine Color YELLOW Urine Turbidity HAZY Urine pH 5.5 Urine Specific Potter 1.026 Urine Protein 30 mg/dL Urine Glucose (UA) NEG mg/dL Urine Ketones 10 mg/dL Urine Occult Blood NEG Urine Nitrite NEG Urine Bilirubin NEG Urine Urobilinogen LESS THAN 2.0 MG/DL Urine Leukocyte Esterase NEG Urine RBC 2 /hpf Urine WBC 4 /hpf Urine Squamous Epithelial Cells 1 /hpf Urine Amorphous Sediment FEW Urine Mucus MANY /lpf Microscopic Urinalysis Comment CULT NOT INDICATED Culture Results Microbiology Date/Time Source Procedure Growth Status 11/27/17 12:14 Blood Peripheral Aerobic Blood Culture - Preliminary NO GROWTH IN 1 DAY Resulted 11/27/17 12:14 Blood Peripheral Anaerobic Blood Culture - Preliminary NO GROWTH IN 1 DAY Resulted 11/27/17 12:08 Blood Peripheral Aerobic Blood Culture - Preliminary NO GROWTH IN 1 DAY Resulted 11/27/17 12:08 Blood Peripheral Anaerobic Blood Culture - Preliminary NO GROWTH IN 1 DAY Resulted Imaging Studies Last Impressions Chest X-Ray 11/27/17 1156 Signed Impressions: Service Date/Time: Monday, November 27, 2017 12:15 - CONCLUSION: The lungs are clear. Juan Valentin MD Head CT 11/27/17 0000 Signed Impressions: Service Date/Time: Monday, November 27, 2017 13:09 - CONCLUSION: 1. No acute hemorrhage or mass effect. 2. 3. Postsurgical changes status post left frontal craniotomy with area of apparent encephalomalacia or possible small calcification. 4. Post operative changes status post left occipital craniotomy with focal area of apparent encephalomalacia and scarring. Jeferson Neil MD Brain MRI 11/27/17 0000 Signed Impressions: Service Date/Time: Monday, November 27, 2017 13:31 - CONCLUSION: No evidence of recurrent metastatic disease. Juan Valentin MD Last 24 hours Impressions Chest X-Ray 11/27/17 1156 Signed Impressions: Service Date/Time: Monday, November 27, 2017 12:15 - CONCLUSION: The lungs are clear. Juan Valentin MD Administered Medications Medications (Trade) Dose Ordered Sig/Jose Manuel Route PRN Reason Start Time Stop Time Status Last Admin Dose Admin Acetaminophen (Tylenol) 650 mg Q4H PRN PO fever or pain 1-10 11/27/17 15:30 11/28/17 09:01 Levetriacetam (Keppra) 500 mg BID PO 11/27/17 21:00 11/28/17 09:02 Sodium Chloride 1,000 ml @ 80 mls/hr [id number] IV 11/27/17 16:00 11/28/17 07:39 Piperacillin Sod/ Tazobactam Sod 50 ml @ 100 mls/hr Q6H IV 11/27/17 21:30 11/28/17 08:58 Patient Own Medication PT OWN MED: TAFINLAR (DABRAFEN... BID@0800,1999 PO 11/27/17 20:00 11/28/17 10:15 Patient Own Medication PT OWN MED: MEKIN... DAILY@1999 PO 11/27/17 20:00 11/27/17 20:28 Dexamethasone (Decadron) 4 mg Q12HR PO 11/28/17 09:00 11/28/17 09:02 Objective Remarks GENERAL: Older female, resting in bed in no acute distress. SKIN: Warm and dry. HEAD: Normocephalic. EYES: Ecchymosis above L eye. NECK: Supple, trachea midline. CARDIOVASCULAR: Regular rate and rhythm without murmurs. RESPIRATORY: Clear anteriorly, breathing unlabored. GASTROINTESTINAL: Abdomen soft, non-tender, nondistended. EXTREMITIES: No cyanosis, or edema. MUSCULOSKELETAL: Adequate muscle tone. NEUROLOGICAL: No obvious focal deficit. Awake, alert, and oriented x3. 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 She has received radiation treatments to the brain and is currently being treated with a BRAF inhibitor as well as a MAC inhibitor. She was seen in the outpatient clinic on 11/25 where she was having increased headaches. She was sent for an MRI of the brain however she was unable to get this done as she had a fall with altered mental status at home. This is what prompted her to come to the emergency room. MRI done in the ER shows no evidence of any recurrent disease. (2) Fever and chills ICD Codes: R50.9 - Fever, unspecified Status: Acute Plan: -- Blood cultures drawn on 11/27 show no growth 1 day -- Patient on vancomycin, Zosyn Assessment 72-year-old female with history of metastatic melanoma admitted for altered mental status Plan 1. Await results of CT chest abdomen and pelvis 2. Check stool for C. difficile 3. Monitor CBC, CMP Discussed with Delisa Perez Nov 28, 2017 12:14
--- NOTE | 2017-11-28 13:06 | MB ---
cc: RICARDO VALENTE DATE OF CONSULTATION: 11/27/30 REASON FOR CONSULTATION The patient with a history of stage IV malignant melanoma who presents to the emergency department after a fall. HISTORY OF PRESENT ILLNESS This is a 72-year-old female who has a diagnosis of BRAF positive stage IV malignant melanoma with metastasis to the brain. In August of 2017, she had presented to the [facility] with mental status changes and headaches. MRI of the brain revealed a hemorrhagic mass in the high convexity of the left frontal region which was approximately 2.7 cm. There was also a 4 cm mass in the left cerebellar hemisphere which is crossing the midline. There was concentric nodular and peripheral contrast enhancement. CT of the chest also revealed a small pulmonary nodule. The patient underwent a suboccipital craniotomy and resection of the posterior fossa lesion on 09/24/2017. Pathology revealed metastatic melanoma. She had ventriculostomy tube removal on 09/28. On 10/01/2017, she underwent a left frontal craniotomy for resection of the neoplasm. The patient was subsequently discharged from the hospital. She was seen in the clinic. This was BRAF positive disease. The patient was started on of a BRAF inhibitor as well as a MEK inhibitor. She is currently on dabrafenib and trametinib. She has been tolerating the treatment without any major issues. She presented to the emergency room yesterday after she fell. She felt lightheaded and dizzy. Her states that she has not been eating or drinking enough. He thinks that she has been declining over the past several days. She is more lethargic. In the emergency room, the patient underwent a CT and MRI of the brain which did not show any acute abnormality. There was no evidence of recurrent metastatic disease. The patient has been admitted to the hospital for further management. She denies any headaches, no blurry vision. She denies any chest pain, no shortness of breath, no abdominal pain, no lower extremity edema or pain, no nosebleeds, no gum bleeds. REVIEW OF SYSTEMS A comprehensive 14-point review of systems was completed which is negative except as described in the HPI. PAST MEDICAL HISTORY 1. Stage IV malignant melanoma with metastasis to the brain. 2. Anxiety. 3. Migraine headaches. 4. Hyperlipidemia. PAST SURGICAL HISTORY 1. Suboccipital craniotomy with resection of the posterior fossa mass on 09/24/2017. Ventriculostomy tube placement as well, then she had removal on 09/28/2017. 2. Left frontal craniotomy and resection of neoplasm on 10/01/2017. 3. Excision of the melanoma from upper back in the spring. 4. History of chin lift. MEDICATIONS 1. Trametinib. 2. Dabrafenib. 3. Keppra. 4. Zofran p.r.n. ALLERGIES SHE IS ALLERGIC TO OXYCODONE. FAMILY HISTORY Reviewed and is noncontributory to this admission. SOCIAL HISTORY She does not smoke cigarettes. No drug abuse. No alcohol abuse. She is . She lives with her . PHYSICAL EXAMINATION VITAL SIGNS: Blood pressure is 132/66, pulse is in the 90s, temperature is 98% on room air. GENERAL: Chronically ill-appearing female, in no apparent distress. HEENT: Pupils are equal, round and reactive to light. EOMI. No oral thrush or lesions. NECK: Supple. No JVD. No bruits. No lymphadenopathy. CHEST: Clear to auscultation bilaterally. CARDIAC: S1, S2. Regular rate and rhythm. ABDOMEN: Soft, nontender, nondistended. Bowel sounds are present. EXTREMITIES: She is without any edema, erythema or cyanosis. SKIN: Without any petechiae, lesions or bruises. NEUROLOGIC: No focal deficits. PSYCHIATRIC: Mood and affect is appropriate. LABORATORY DATA WBC is 8.9, hemoglobin is 11.9, platelet count is 45. Serum chemistries show sodium of 142, potassium 3.6, chloride 109, CO2 21.8, anion gap is 11, BUN is 18, creatinine is 0.93, GFR 59, glucose is 111, calcium is 8. IMAGING STUDIES Chest x-ray was reviewed and there is no acute cardiopulmonary abnormality. MRI of the brain was also reviewed and no evidence of metastatic disease was seen. ASSESSMENT AND PLAN This is a 72-year-old female who has a past medical history of stage IV malignant melanoma who is being treated with BRAF-directed therapy. She is also on a MEK inhibitor. She presents to the emergency department with lightheadedness and dizziness and a fall as well as failure to thrive and low p.o. intake. 1. Lethargy and fall. The etiology is unclear at this time. MRI of the brain was reviewed and there is no evidence of progressive disease. We need to make sure that there is no underlying infection. One possibility is that she is having some side effects from her treatment. I will hold off her dabrafenib and trametinib during the admission. We will obtain a CT of the chest, abdomen and pelvis. I reviewed her chest x-ray and UA and there is no evidence of any pneumonia or UTI. 2. Decreased oral intake. I encouraged oral intake, dietitian consult, Ensure Plus t.i.d. with meals. I am starting her on Marinol 2.5 mg p.o. b.i.d. We will also give her a short trial of steroids. 3. Stage IV malignant melanoma. Hold melanoma treatment for now. 4. Physical deconditioning. PT consult. Thank you for allowing me to participate in the care of this patient. I will continue to follow this patient along. MD MALIK Morgan/SANTA /9:21 AM /12:05 PM
[2017-11-28] MEDS: VANCOMYCIN INJ 1,000 MG in SODIUM CHLOR 0.9% 250 ML INJ 250 ML IV SCH (16:30)
[2017-11-28] MEDS ORDERED: IOHEXOL 350 MG/ML 10 ML VIAL (for RAD DIAG) IVCONTRAST ONE (17:11)
--- NOTE | 2017-11-28 17:21 | RADRPT ---
EXAM DATE/TIME: 11/28/2017 17:02 [facility] COMPARISON: No previous studies available for comparison. INDICATIONS : Melanoma, restaging, failure to thrive. IV CONTRAST: 75 cc Omnipaque 350 (iohexol) IV ; Cumulative dose for multiple exams. RADIATION DOSE: 11.08 CTDIvol (mGy) ; Combined studies - Thorax/Abdomen/Pelvis MEDICAL HISTORY : Cardiovascular disease. Macular degeneration, Melanoma SURGICAL HISTORY : Craniotomy. Brain tumors ENCOUNTER: Initial ACUITY: 1 day PAIN SCALE: 0/10 LOCATION: chest TECHNIQUE: Volumetric scanning of the chest was performed. Using automated exposure control and adjustment of t he mA and/or kV according to patient size, radiation dose was kept as low as reasonably achievable to obtain optimal diagnostic quality images. DICOM format image data is available electronically for review and comparison. Follow-up recommendations for detected pulmonary nodules are based at a minimum on nodule size and pa tient risk factors according to Fleischner Society Guidelines. FINDINGS: There is a tiny groundglass nodule right lower lobe posteromedially measures 8 mm. There is scarring in both lungs particularly left apex in addition to an area of scarring right middle lobe maximum thi ckness of 8 mm. There is no pleural effusion. No appreciable pathological adenopathy is seen within the mediastinum. CONCLUSION: There are areas of scarring in the lungs many right middle lobe with nonspecific righ t lower lobe nodule, repeat noncontrast chest CT is suggested in 6 months as a conservative follow up . Anthony Fraga MD on November 28, 2017 at 17:15 Board Certified Radiologist. This report was verified electronically.
--- NOTE | 2017-11-28 17:26 | RADRPT ---
EXAM DATE/TIME: 11/28/2017 17:02 [facility] COMPARISON: No previous studies available for comparison. INDICATIONS : Melanoma brain, failure to thrive, restaging. IV CONTRAST: 75 cc Omnipaque 350 (iohexol) IV ; Cumulative dose for multiple exams. ORAL CONTRAST: Prescribed oral contrast ingested. RADIATION DOSE: 11.05 CTDIvol (mGy) ; Combined studies - Thorax/Abdomen/Pelvis MEDICAL HISTORY : Cardiovascular disease. Macular degeneration, Melanoma SURGICAL HISTORY : 2 Juan A tumors. ENCOUNTER: Subsequent ACUITY: 1 day PAIN SCALE: 0/10 LOCATION: abdomen TECHNIQUE: Volumetric scanning of the abdomen and pelvis was performed. Using automated exposure control and adjustment of the mA and/or kV according to patient size, radiation dose was kept as low as reasonably achievable to obtain optimal diagnostic quality images. DICOM format image data is av ailable electronically for review and comparison. FINDINGS: CT Abdomen: The liver, spleen, pancreas, left kidney, adrenals are unremarkable. There is no evidence for any appreciable pathological adenopathy, free fluid, or bowel obstruction. There is a small appr oximate 1.1 cm cyst in right upper pole kidney. CT pelvis: There is no evidence for mass, abscess formation, or any significant adenopathy within the pelvis. Approximate 1.1 cm bone island is present in the right acetabulum. There are scattered diver ticuli mainly in the sigmoid colon without definite signs of diverticulitis. Approximate 3 cm simple cyst is present in the right ovary and there is an approximate 1.8 cm fibroid coming off the uterus a nteriorly. CONCLUSION: 1. Uterine fibroid and right ovarian cyst. 2. Right acetabulum bone islands and no evidence for metastatic disease. Anthony Fraga MD on November 28, 2017 at 17:20 Board Certified Radiologist. This report was verified electronically.
[2017-11-28] MEDS: LOPERAMIDE HCL 2 MG CAP PO PRN (17:37)
[2017-11-28] MEDS: MEKINIST 2 MG PO SCH (21:21)
[2017-11-29] VITALS: BP 82/53; PULSE 82; RESP 18; TEMP 98; O2SAT 94
[2017-11-29] MEDS: PIPERACIL-TAZO 3.375 GM PREMIX 50 ML IV SCH ×4 (02:13→23:00)
[2017-11-29 04:00] VITALS: BP 89/52; PULSE 86; RESP 18; TEMP 98.1; O2SAT 96
[2017-11-29] MEDS: SODIUM CHLOR 0.9% 1000 ML INJ 1,000 ML IV SCH (05:46)
[2017-11-29 08:00] VITALS: BP 107/59; PULSE 89; RESP 18; TEMP 97.5; O2SAT 100
[2017-11-29] MEDS: TAFINLAR 75 MG PO SCH (08:00)
[2017-11-29 08:48] LABS: AUTOMATED NEUTROPHIL # 3.5 TH/MM3 (1.8-7.7); BASOPHIL % 0.3 % (0.0-2.0); HEMATOCRIT 31.8 % (35.0-46.0); HEMOGLOBIN 10.9 GM/DL (11.6-15.3); LYMPH % 18.5 % (9.0-44.0); LYMPHOCYTE # 0.8 TH/MM3 (1.0-4.8); MEAN CELL VOLUME 88.5 FL (80.0-100.0); MEAN CORPUSCULAR HEMOGLOBIN 30.2 PG (27.0-34.0); MEAN CORPUSCULAR HGB CONC 34.2 % (32.0-36.0); MEAN PLATELET VOLUME 10.9 FL (7.0-11.0); MONO % 5.4 % (0.0-8.0); MONOCYTE # 0.2 TH/MM3 (0-0.9); NEUT % 75.8 % (16.0-70.0); PLATELET COUNT 67 TH/MM3 (150-450); RED BLOOD COUNT 3.59 MIL/MM3 (4.00-5.30); WHITE BLOOD COUNT 4.6 TH/MM3 (4.0-11.0)
[2017-11-29] MEDS: DEXAMETHASONE 4 MG TAB PO SCH (08:50)
[2017-11-29] MEDS: levETIRAcetam 500 MG TAB PO SCH ×2 (08:50→23:00)
[2017-11-29] MEDS: LOPERAMIDE HCL 2 MG CAP PO PRN (08:56)
[2017-11-29 09:22] LABS: BICARBONATE 22.4 MEQ/L (21.0-32.0); CALCIUM 7.1 MG/DL (8.5-10.1); CREATININE 0.85 MG/DL (0.50-1.00); MAGNESIUM 1.9 MG/DL (1.5-2.5)
--- NOTE | 2017-11-29 09:40 | HHI.PR ---
Subjective Remarks Pt reports that she is still having loose stools about every 4 hours or so Denies any abd pain No fevers since 11/28 at 0800 Pt tolerating oral intake but not much of an appetite Objective Vitals Vital Signs Date Time Temp Pulse Resp B/P (MAP) Pulse Ox O2 Delivery O2 Flow Rate FiO2 11/29/17 04:00 98.1 86 18 89/52 (64) 96 11/29/17 00:00 98.0 82 18 82/53 (63) 94 11/28/17 23:00 82 11/28/17 20:00 98.3 87 18 86/54 (65) 94 11/28/17 20:00 90 11/28/17 18:49 86 16 92/56 (68) 11/28/17 16:00 92 11/28/17 16:00 97.8 90 16 81/53 (62) 96 11/28/17 12:00 94 11/28/17 12:00 97.4 97 16 101/59 (73) 96 11/29/17 11/29/17 11/30/17 15:00 23:00 07:00 # Voids 3 # Bowel Movements 4 Result Diagram: 11/29/17 0800 11/29/17 0814 Other Results Laboratory Tests Test 11/27/17 12:08 11/27/17 12:14 11/27/17 14:18 11/28/17 06:58 White Blood Count 3.9 TH/MM3 8.9 TH/MM3 Red Blood Count 4.19 MIL/MM3 3.94 MIL/MM3 Hemoglobin 12.4 GM/DL 11.9 GM/DL Hematocrit 37.4 % 35.6 % Mean Corpuscular Volume 89.3 FL 90.2 FL Mean Corpuscular Hemoglobin 29.7 PG 30.2 PG Mean Corpuscular Hemoglobin Concent 33.3 % 33.4 % Red Cell Distribution Width 14.5 % 14.9 % Platelet Count 109 TH/MM3 45 TH/MM3 Mean Platelet Volume 8.6 FL 9.7 FL Neutrophils (%) (Auto) 77.9 % 90.5 % Lymphocytes (%) (Auto) 13.7 % 7.5 % Monocytes (%) (Auto) 7.9 % 1.6 % Eosinophils (%) (Auto) 0.0 % 0.2 % Basophils (%) (Auto) 0.5 % 0.2 % Neutrophils # (Auto) 3.0 TH/MM3 8.1 TH/MM3 Lymphocytes # (Auto) 0.5 TH/MM3 0.7 TH/MM3 Monocytes # (Auto) 0.3 TH/MM3 0.1 TH/MM3 Eosinophils # (Auto) 0.0 TH/MM3 0.0 TH/MM3 Basophils # (Auto) 0.0 TH/MM3 0.0 TH/MM3 CBC Comment AUTO DIFF AUTO DIFF Differential Total Cells Counted 100 100 Neutrophils % (Manual) 47 % 10 % Band Neutrophils % 23 % 82 % Lymphocytes % 19 % 5 % Monocytes % 10 % 2 % Neutrophils # (Manual) 2.8 TH/MM3 8.3 TH/MM3 Metamyelocytes 1 % 1 % Differential Comment FINAL DIFF MANUAL FINAL DIFF MANUAL Platelet Estimate LOW LOW Platelet Morphology Comment NORMAL NORMAL Red Cell Morphology Comment NORMAL NORMAL Prothrombin Time 11.8 SEC Prothromb Time International Ratio 1.2 RATIO Activated Partial Thromboplast Time 25.3 SEC Blood Urea Nitrogen 15 MG/DL 18 MG/DL Creatinine 0.81 MG/DL 0.93 MG/DL Random Glucose 214 MG/DL 111 MG/DL Total Protein 6.6 GM/DL Albumin 2.8 GM/DL Calcium Level 7.9 MG/DL 8.0 MG/DL Magnesium Level 1.7 MG/DL 1.6 MG/DL Alkaline Phosphatase 114 U/L Aspartate Amino Transf (AST/SGOT) 75 U/L Alanine Aminotransferase (ALT/SGPT) 40 U/L Total Bilirubin 0.4 MG/DL Sodium Level 136 MEQ/L 142 MEQ/L Potassium Level 3.8 MEQ/L 3.6 MEQ/L Chloride Level 104 MEQ/L 109 MEQ/L Carbon Dioxide Level 22.8 MEQ/L 21.8 MEQ/L Anion Gap 9 MEQ/L 11 MEQ/L Estimat Glomerular Filtration Rate 70 ML/MIN 59 ML/MIN Total Creatine Kinase 72 U/L Troponin I LESS THAN 0.02 NG/ML Thyroid Stimulating Hormone 3rd Gen 0.348 uIU/ML Lactic Acid Level 1.5 mmol/L Urine Color YELLOW Urine Turbidity HAZY Urine pH 5.5 Urine Specific Tuttle 1.026 Urine Protein 30 mg/dL Urine Glucose (UA) NEG mg/dL Urine Ketones 10 mg/dL Urine Occult Blood NEG Urine Nitrite NEG Urine Bilirubin NEG Urine Urobilinogen LESS THAN 2.0 MG/DL Urine Leukocyte Esterase NEG Urine RBC 2 /hpf Urine WBC 4 /hpf Urine Squamous Epithelial Cells 1 /hpf Urine Amorphous Sediment FEW Urine Mucus MANY /lpf Microscopic Urinalysis Comment CULT NOT INDICATED Test 11/28/17 12:10 11/29/17 08:00 11/29/17 08:14 Stool C. difficile Toxin (PCR) NEGATIVE Stl C. difficile Toxin Epiderm 027 PRESUMPTIVE NEGATIVE White Blood Count 4.6 TH/MM3 Red Blood Count 3.59 MIL/MM3 Hemoglobin 10.9 GM/DL Hematocrit 31.8 % Mean Corpuscular Volume 88.5 FL Mean Corpuscular Hemoglobin 30.2 PG Mean Corpuscular Hemoglobin Concent 34.2 % Red Cell Distribution Width 15.0 % Platelet Count 67 TH/MM3 Mean Platelet Volume 10.9 FL Neutrophils (%) (Auto) 75.8 % Lymphocytes (%) (Auto) 18.5 % Monocytes (%) (Auto) 5.4 % Eosinophils (%) (Auto) 0.0 % Basophils (%) (Auto) 0.3 % Neutrophils # (Auto) 3.5 TH/MM3 Lymphocytes # (Auto) 0.8 TH/MM3 Monocytes # (Auto) 0.2 TH/MM3 Eosinophils # (Auto) 0.0 TH/MM3 Basophils # (Auto) 0.0 TH/MM3 CBC Comment AUTO DIFF Blood Urea Nitrogen 16 MG/DL Creatinine 0.85 MG/DL Random Glucose 117 MG/DL Calcium Level 7.1 MG/DL Magnesium Level 1.9 MG/DL Sodium Level 143 MEQ/L Potassium Level 3.6 MEQ/L Chloride Level 113 MEQ/L Carbon Dioxide Level 22.4 MEQ/L Anion Gap 8 MEQ/L Estimat Glomerular Filtration Rate 66 ML/MIN Imaging Last Impressions Chest CT 11/28/17 0000 Signed Impressions: Service Date/Time: Tuesday, November 28, 2017 17:02 - CONCLUSION: There are areas of scarring in the lungs many right middle lobe with nonspecific right lower lobe nodule, repeat noncontrast chest CT is suggested in 6 months as a conservative follow up. Anthony Fraga MD Abdomen/Pelvis CT 11/28/17 0000 Signed Impressions: Service Date/Time: Tuesday, November 28, 2017 17:02 - CONCLUSION: 1. Uterine fibroid and right ovarian cyst. 2. Right acetabulum bone islands and no evidence for metastatic disease. Anthony Fraga MD Chest X-Ray 11/27/17 1156 Signed Impressions: Service Date/Time: Monday, November 27, 2017 12:15 - CONCLUSION: The lungs are clear. Juan Valentin MD Head CT 11/27/17 0000 Signed Impressions: Service Date/Time: Monday, November 27, 2017 13:09 - CONCLUSION: 1. No acute hemorrhage or mass effect. 2. 3. Postsurgical changes status post left frontal craniotomy with area of apparent encephalomalacia or possible small calcification. 4. Post operative changes status post left occipital craniotomy with focal area of apparent encephalomalacia and scarring. Jeferson Neil MD Brain MRI 11/27/17 0000 Signed Impressions: Service Date/Time: Monday, November 27, 2017 13:31 - CONCLUSION: No evidence of recurrent metastatic disease. Juan Valentin MD Last Impressions Chest X-Ray 11/27/17 1156 Signed Impressions: Service Date/Time: Monday, November 27, 2017 12:15 - CONCLUSION: The lungs are clear. Juan Valentin MD Head CT 11/27/17 0000 Signed Impressions: Service Date/Time: Monday, November 27, 2017 13:09 - CONCLUSION: 1. No acute hemorrhage or mass effect. 2. 3. Postsurgical changes status post left frontal craniotomy with area of apparent encephalomalacia or possible small calcification. 4. Post operative changes status post left occipital craniotomy with focal area of apparent encephalomalacia and scarring. Jeferson Neil MD Brain MRI 11/27/17 0000 Signed Impressions: Service Date/Time: Monday, November 27, 2017 13:31 - CONCLUSION: No evidence of recurrent metastatic disease. 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 She was previously hospitalized in August 2017 when the metastatic disease was initially found with a mass in the left frontal region and in the left cerebellar hemisphere. During that admission she underwent surgical resection of the two masses in two separate surgeries with pathology revealing metastatic melanoma. She has been following with Dr. Lynch for Oncology. She has been on Tremetinib and Dabrafinib. She had an [id number] placed following that admission. She reports that she has been having issues with her port since it was placed and reports that it has been evaluated in radiology twice per the pts . They report that they have had issues with malposition of the port. There has been attempts to access the port which has been problematic per the pt. But it was able to be accessed three days ago to draw blood out of it at Dr. Perez office. She was seen by Dr. Lynch on 11/25 and at that time was complaining of significant headaches and was being sent for an MRI of the brain. After that appt she fell at home. She reports that she lost her balance in the bathroom and fell and hit her head. She has been nauseated for the last 3 days and has not been eating much. Altered Mental Status Fever/chills, possible sepsis - The pt woke up on the morning of admission and was very confused, and didn' t know where she was or what was going on this morning, which prompted her evaluation in the ED for evaluation. - Pt was noted to have a fever upon arrival to the ED of 101 and has started shivering. - Her labs in the ED noted WBC count 3.9 with 23% bands. - Her CXR in the ED was clear. - Blood cultures were drawn in the ED are pending - Pts port was access a few days before symptoms of AMS and fever started so must consider port infection - Pt was given Vancomycin and cefepime in the ED - We will continued on Zosyn and Vancomycin with pharmacy to consult - Overnight on 11/28 pt developed diarrhea, stool studies for C. diff were negative and stool culture is pending - Pt was seen by Dr. Lynch and a CT Chest/Abd/Pelvis was ordered. - Chest CT (11/28) --> There are areas of scarring in the lungs many right middle lobe with nonspecific right lower lobe nodule, repeat noncontrast chest CT is suggested in 6 months as a conservative follow up. - CT Abd/pelvis (11/28) --> Uterine fibroid and right ovarian cyst. Right acetabulum bone islands and no evidence for metastatic disease. - Dr. Lynch has recommended holding her Tremetinib and Dabrafinib for now as he is concerned that they could be contributing to her symptoms but the pt is very concerned about stopping them. This was relayed to the Oncology TEACHER DANCING, Delisa, and she will discuss this with the Oncologist today. - Monitor labs a clinical status - 2D echo is pending - Telemetry - Tylenol PRN - Zofran PRN - Supportive care - DVT prophylaxis with SCDs for now BRAF positive metastatic melanoma - She has been following with Dr. Lynch for Oncology. - Appreciate consult from Dr. Lynch - She has been on Tremetinib and Dabrafinib. - Head CT (11/27) --> No acute hemorrhage or mass effect, postsurgical changes status post left frontal craniotomy with area of apparent encephalomalacia or possible small calcification, and post operative changes status post left occipital craniotomy with focal area of apparent encephalomalacia and scarring. - MRI of the brain (11/27) --> No evidence of recurrent metastatic disease. - Cont. home meds (2) Altered mental status ICD Codes: R41.82 - Altered mental status, unspecified Status: Acute (3) Melanoma ICD Codes: C43.9 - Malignant melanoma of skin, unspecified Status: Chronic Assessment and Plan Patient examined. Assessment and plan formulated with Shira Hines PA-C. I agree with the above. metastatic melanoma s/p brain resection. on immunotherapy fevers. ?viral syndrome vs port infection. blood cx ngtd. if fever try cx from port oncology also considering her medication as culprit. if neg cx in next 24hr then deescalate and convert to po. Problem Qualifiers (1) Altered mental status: Qualified Codes: R41.82 - Altered mental status, unspecified Shira Hines Nov 29, 2017 09:40 Linwood Ortega MD Nov 29, 2017 12:41
[2017-11-29 09:42] LABS: CALCIUM-PROTEIN CORRECTED 7.8 MG/DL (8.5-10.1); TOTAL PROTEIN 5.7 GM/DL (6.4-8.2)
[2017-11-29 10:31] LABS: ACANTHOCYTES OCC (NORMAL); BANDS 58 % (0-6); BURR CELLS 1+ (NORMAL); LYMPHOCYTES 7 % (9-44); MONOCYTES 8 % (0-8); NEUTROPHIL # MANUAL DIFF 3.9 TH/MM3 (1.8-7.7); POLYS (SEG NEUTROPHILS) 27 % (16-70)
[2017-11-29] MEDS: DRONABINOL 2.5 MG CAP PO SCH ×2 (11:51→16:00)
--- NOTE | 2017-11-29 12:19 | EKG ---
Date Performed: 11/27/2017 Time Performed: 12:45:03 PTAGE: 72 years EKG: SINUS TACHYCARDIA MODERATE T-WAVE ABNORMALITY, CONSIDER LATERAL ISCHEMIA ABNORMAL ECG NO PREVIOUS TRACING DOCTOR: Jabari Lay Interpretating Date/Time 11/29/2017 12:19:17
--- NOTE | 2017-11-29 12:57 | PD.ONC.PN ---
Subjective Subjective Remarks Afebrile "Overall I feel so much better" Family at the bedside states her mental status is much improved since admission Thinks her stools are getting more solid Objective Data Date Time Temp Pulse Resp B/P (MAP) Pulse Ox O2 Delivery O2 Flow Rate FiO2 11/29/17 08:00 97.5 89 18 107/59 (75) 100 11/29/17 04:00 98.1 86 18 89/52 (64) 96 11/29/17 00:00 98.0 82 18 82/53 (63) 94 11/28/17 23:00 82 11/28/17 20:00 98.3 87 18 86/54 (65) 94 11/28/17 20:00 90 11/28/17 18:49 86 16 92/56 (68) 11/28/17 16:00 92 11/28/17 16:00 97.8 90 16 81/53 (62) 96 Result Diagram: 11/29/17 0800 11/29/17 0814 Laboratory Results Laboratory Tests Test 11/29/17 08:00 11/29/17 08:14 White Blood Count 4.6 TH/MM3 Red Blood Count 3.59 MIL/MM3 Hemoglobin 10.9 GM/DL Hematocrit 31.8 % Mean Corpuscular Volume 88.5 FL Mean Corpuscular Hemoglobin 30.2 PG Mean Corpuscular Hemoglobin Concent 34.2 % Red Cell Distribution Width 15.0 % Platelet Count 67 TH/MM3 Mean Platelet Volume 10.9 FL Neutrophils (%) (Auto) 75.8 % Lymphocytes (%) (Auto) 18.5 % Monocytes (%) (Auto) 5.4 % Eosinophils (%) (Auto) 0.0 % Basophils (%) (Auto) 0.3 % Neutrophils # (Auto) 3.5 TH/MM3 Lymphocytes # (Auto) 0.8 TH/MM3 Monocytes # (Auto) 0.2 TH/MM3 Eosinophils # (Auto) 0.0 TH/MM3 Basophils # (Auto) 0.0 TH/MM3 CBC Comment AUTO DIFF Differential Total Cells Counted 100 Neutrophils % (Manual) 27 % Band Neutrophils % 58 % Lymphocytes % 7 % Monocytes % 8 % Neutrophils # (Manual) 3.9 TH/MM3 Differential Comment FINAL DIFF MANUAL Platelet Estimate LOW Platelet Morphology Comment NORMAL Marcos Cells 1+ Acanthocytes OCC Blood Urea Nitrogen 16 MG/DL Creatinine 0.85 MG/DL Random Glucose 117 MG/DL Total Protein 5.7 GM/DL Calcium Level 7.1 MG/DL Magnesium Level 1.9 MG/DL Sodium Level 143 MEQ/L Potassium Level 3.6 MEQ/L Chloride Level 113 MEQ/L Carbon Dioxide Level 22.4 MEQ/L Anion Gap 8 MEQ/L Estimat Glomerular Filtration Rate 66 ML/MIN Protein Corrected Calcium 7.8 MG/DL Culture Results Microbiology Date/Time Source Procedure Growth Status 11/27/17 12:14 Blood Peripheral Aerobic Blood Culture - Preliminary NO GROWTH IN 2 DAYS Resulted 11/27/17 12:14 Blood Peripheral Anaerobic Blood Culture - Preliminary NO GROWTH IN 2 DAYS Resulted 11/27/17 12:08 Blood Peripheral Aerobic Blood Culture - Preliminary NO GROWTH IN 2 DAYS Resulted 11/27/17 12:08 Blood Peripheral Anaerobic Blood Culture - Preliminary NO GROWTH IN 2 DAYS Resulted 11/28/17 12:10 Stool Stool Pending Received Administered Medications Medications (Trade) Dose Ordered Sig/Jose Manuel Route PRN Reason Start Time Stop Time Status Last Admin Dose Admin Vancomycin HCl 1000 mg/Sodium Chloride 250 ml @ 250 mls/hr Q24H IV 11/28/17 15:00 11/28/17 16:30 Acetaminophen (Tylenol) 650 mg Q4H PRN PO fever or pain 1-10 11/27/17 15:30 11/28/17 09:01 Levetriacetam (Keppra) 500 mg BID PO 11/27/17 21:00 11/29/17 08:50 Sodium Chloride 1,000 ml @ 80 mls/hr [id number] IV 11/27/17 16:00 11/29/17 05:46 Piperacillin Sod/ Tazobactam Sod 50 ml @ 100 mls/hr Q6H IV 11/27/17 21:30 11/29/17 08:50 Patient Own Medication PT OWN MED: TAFINLAR (DABRAFEN... BID@ PO 11/27/17 20:00 Future Hold 11/28/17 21:17 Patient Own Medication PT OWN MED: MEKIN... DAILY@1999 PO 11/27/17 20:00 Future Hold 11/28/17 21:21 Dronabinol (Marinol) 2.5 mg BID@,16 PO 11/28/17 11:00 11/29/17 11:51 Dexamethasone (Decadron) 4 mg Q12HR PO 11/28/17 09:00 11/29/17 08:50 Loperamide HCl (Imodium) 2 mg Q4H PRN PO diarrhea 11/28/17 16:30 11/29/17 08:56 Objective Remarks GENERAL: Older female, resting in bed in no acute distress surrounded by family members. SKIN: Warm and dry. Non-accessed infusaport to R upper chest. On palpation it feels as though it is too far medial and may be flipped. HEAD: Normocephalic. EYES: Ecchymosis above L eye, improved. NECK: Supple, trachea midline. CARDIOVASCULAR: Regular rate and rhythm without murmurs. RESPIRATORY: Clear anteriorly, breathing unlabored. GASTROINTESTINAL: Abdomen soft, non-tender, nondistended. EXTREMITIES: No cyanosis, or edema. MUSCULOSKELETAL: Adequate muscle tone. NEUROLOGICAL: No obvious focal deficit. Awake, alert, and oriented x3. Assessment/Plan Problem List: (1) Melanoma ICD Codes: C43.9 - Malignant melanoma of skin, unspecified Status: Chronic Plan: -- Will get restaging imaging scans including CT of the chest, abdomen and pelvis show NO recurrent or metastatic disease. Hx/Workup: Patient has a diagnosis of BRAF+ stage IV melanoma with metastases to the brain. She has received radiation treatments to the brain and is currently being treated with a BRAF inhibitor as well as a MAC inhibitor. She was seen in the outpatient clinic on 11/25 where she was having increased headaches. She was sent for an MRI of the brain however she was unable to get this done as she had a fall with altered mental status at home. This is what prompted her to come to the emergency room. MRI done in the ER shows no evidence of any recurrent disease. (2) Fever and chills ICD Codes: R50.9 - Fever, unspecified Status: Acute Plan: -- Blood cultures drawn on 11/27 show no growth 1 day -- Patient on vancomycin, Zosyn (3) Altered mental status ICD Codes: R41.82 - Altered mental status, unspecified Status: Acute Plan: -- On Keppra and Decadron -- Improving -- MRI Brain shows no new lesions. (4) Thrombocytopenia ICD Codes: D69.6 - Thrombocytopenia, unspecified Plan: -- Will check labs for DIC in am Assessment 72-year-old female with history of metastatic melanoma admitted for altered mental status Plan 1. Transfer pt to oncology floor 2. Consult IR as infusaport feels medial and flipped on palpation. 3. Monitor CBC, CMP. Monitor for fevers. 4. Hold dabrafenib and trametinib as these may be contributing to cytopenias 5. Check labs for DIC in am including Haptoglobin and LDH. Attending Statement The exam, history, and the medical decision-making described in the above note were completed with the assistance of the mid-level provider. I reviewed and agree with the findings presented. I attest that I had a [id number] encounter with the patient on the same day, and personally performed and documented my assessment and findings in the medical record. 72 yoF with metastatic melanoma BRAF positive on dabrafenib/trametinib admitted with AMS and fever. Upon discussion with patient and family patient has altered mental status intermittently since surgical resection of cranial disease. This worsened prior to admission and then has improved. She is afebrile. Possible etiology of the fevers is BRAf/MEK therapy. Continue to monitor, oncology will continue to follow. Problem Qualifiers (1) Altered mental status: Qualified Codes: R41.82 - Altered mental status, unspecified Delisa Gaitan Nov 29, 2017 12:57 Lamar Simmons MD Nov 30, 2017 00:08
[2017-11-29 16:10] VITALS: BP 107/86; PULSE 82; O2SAT 97
[2017-11-29] MEDS: VANCOMYCIN INJ 1,000 MG in SODIUM CHLOR 0.9% 250 ML INJ 250 ML IV SCH (18:10)
[2017-11-29 20:00] VITALS: BP 110/70; PULSE 82; PULSE 87; RESP 20; TEMP 98.5; O2SAT 96
[2017-11-29] MEDS: ACETAMINOPHEN 325 MG TAB PO PRN (23:00)
[2017-11-30] VITALS (8 sets, daily range): BP systolic 110–124; BP diastolic 68–86; PULSE 69–87; RESP 16–18; TEMP 97.7–98.6; O2SAT 96–98
[2017-11-30] MEDS: DEXAMETHASONE 4 MG TAB PO SCH ×3 (00:08→21:59)
[2017-11-30] MEDS: SODIUM CHLOR 0.9% 1000 ML INJ 1,000 ML IV SCH ×3 (00:08→21:59)
[2017-11-30] MEDS: PIPERACIL-TAZO 3.375 GM PREMIX 50 ML IV SCH (03:42)
[2017-11-30 06:45] LABS: HEMOGLOBIN 9.4 GM/DL (11.6-15.3); MEAN CELL VOLUME 87.5 FL (80.0-100.0); MEAN CORPUSCULAR HEMOGLOBIN 30.6 PG (27.0-34.0); MEAN CORPUSCULAR HGB CONC 34.9 % (32.0-36.0); PLATELET COUNT 72 TH/MM3 (150-450); RED BLOOD COUNT 3.09 MIL/MM3 (4.00-5.30); RED CELL DISTRIBUTION WIDTH 14.4 % (11.6-17.2); WHITE BLOOD COUNT 5.9 TH/MM3 (4.0-11.0)
[2017-11-30 07:18] LABS: ALBUMIN 2.1 GM/DL (3.4-5.0); BICARBONATE 18.9 MEQ/L (21.0-32.0); CALCIUM 7.4 MG/DL (8.5-10.1); CALCIUM-PROTEIN CORRECTED 8.6 MG/DL (8.5-10.1); CREATININE 0.7 MG/DL (0.50-1.00); TOTAL BILIRUBIN ADULT 0.3 MG/DL (0.2-1.0)
[2017-11-30 08:02] LABS: BANDS 48 % (0-6); LYMPHOCYTES 11 % (9-44); METAMYELOCYTES 9 % (0-1); MONOCYTES 8 % (0-8); MYELOCYTES 2 % (0-0); NEUTROPHIL # MANUAL DIFF 4.8 TH/MM3 (1.8-7.7); POLYS (SEG NEUTROPHILS) 22 % (16-70)
--- NOTE | 2017-11-30 08:41 | HHI.PR ---
Subjective Remarks Pt reports that the diarrhea is improving Her appetite was better this morning Afebrile sine 11/28/17 at 0800 Objective Vitals Vital Signs Date Time Temp Pulse Resp B/P (MAP) Pulse Ox O2 Delivery O2 Flow Rate FiO2 11/30/17 04:00 76 11/30/17 00:00 85 11/30/17 00:00 97.7 82 18 114/68 (83) 97 11/29/17 20:00 87 11/29/17 20:00 98.5 82 20 110/70 (83) 96 11/29/17 16:10 82 107/86 (93) 97 Result Diagram: 11/30/17 0613 11/30/17 0613 Other Results Laboratory Tests Test 11/28/17 12:10 11/29/17 08:00 11/29/17 08:14 11/30/17 06:13 Stool C. difficile Toxin (PCR) NEGATIVE Stl C. difficile Toxin Epiderm 027 PRESUMPTIVE NEGATIVE White Blood Count 4.6 TH/MM3 5.9 TH/MM3 Red Blood Count 3.59 MIL/MM3 3.09 MIL/MM3 Hemoglobin 10.9 GM/DL 9.4 GM/DL Hematocrit 31.8 % 27.0 % Mean Corpuscular Volume 88.5 FL 87.5 FL Mean Corpuscular Hemoglobin 30.2 PG 30.6 PG Mean Corpuscular Hemoglobin Concent 34.2 % 34.9 % Red Cell Distribution Width 15.0 % 14.4 % Platelet Count 67 TH/MM3 72 TH/MM3 Mean Platelet Volume 10.9 FL 11.0 FL Neutrophils (%) (Auto) 75.8 % Lymphocytes (%) (Auto) 18.5 % Monocytes (%) (Auto) 5.4 % Eosinophils (%) (Auto) 0.0 % Basophils (%) (Auto) 0.3 % Neutrophils # (Auto) 3.5 TH/MM3 Lymphocytes # (Auto) 0.8 TH/MM3 Monocytes # (Auto) 0.2 TH/MM3 Eosinophils # (Auto) 0.0 TH/MM3 Basophils # (Auto) 0.0 TH/MM3 CBC Comment AUTO DIFF AUTO DIFF Differential Total Cells Counted 100 100 Neutrophils % (Manual) 27 % 22 % Band Neutrophils % 58 % 48 % Lymphocytes % 7 % 11 % Monocytes % 8 % 8 % Neutrophils # (Manual) 3.9 TH/MM3 4.8 TH/MM3 Differential Comment FINAL DIFF MANUAL FINAL DIFF MANUAL Platelet Estimate LOW LOW Platelet Morphology Comment NORMAL NORMAL [place] Cells 1+ Acanthocytes OCC Blood Urea Nitrogen 16 MG/DL 14 MG/DL Creatinine 0.85 MG/DL 0.70 MG/DL Random Glucose 117 MG/DL 118 MG/DL Total Protein 5.7 GM/DL 5.0 GM/DL Calcium Level 7.1 MG/DL 7.4 MG/DL Magnesium Level 1.9 MG/DL Sodium Level 143 MEQ/L 145 MEQ/L Potassium Level 3.6 MEQ/L 3.3 MEQ/L Chloride Level 113 MEQ/L 116 MEQ/L Carbon Dioxide Level 22.4 MEQ/L 18.9 MEQ/L Anion Gap 8 MEQ/L 10 MEQ/L Estimat Glomerular Filtration Rate 66 ML/MIN 82 ML/MIN Protein Corrected Calcium 7.8 MG/DL 8.6 MG/DL Metamyelocytes 9 % Myelocytes 2 % Crenated Cell 1+ Haptoglobin 170 MG/DL Albumin 2.1 GM/DL Alkaline Phosphatase 144 U/L Aspartate Amino Transf (AST/SGOT) 99 U/L Alanine Aminotransferase (ALT/SGPT) 69 U/L Lactate Dehydrogenase 716 U/L Total Bilirubin 0.3 MG/DL Imaging Last Impressions Chest CT 11/28/17 0000 Signed Impressions: Service Date/Time: Tuesday, November 28, 2017 17:02 - CONCLUSION: There are areas of scarring in the lungs many right middle lobe with nonspecific right lower lobe nodule, repeat noncontrast chest CT is suggested in 6 months as a conservative follow up. Anthony Fraga MD Abdomen/Pelvis CT 11/28/17 0000 Signed Impressions: Service Date/Time: Tuesday, November 28, 2017 17:02 - CONCLUSION: 1. Uterine fibroid and right ovarian cyst. 2. Right acetabulum bone islands and no evidence for metastatic disease. Anthony Fraga MD Chest X-Ray 11/27/17 1156 Signed Impressions: Service Date/Time: Monday, November 27, 2017 12:15 - CONCLUSION: The lungs are clear. Juan Valentin MD Head CT 11/27/17 0000 Signed Impressions: Service Date/Time: Monday, November 27, 2017 13:09 - CONCLUSION: 1. No acute hemorrhage or mass effect. 2. 3. Postsurgical changes status post left frontal craniotomy with area of apparent encephalomalacia or possible small calcification. 4. Post operative changes status post left occipital craniotomy with focal area of apparent encephalomalacia and scarring. Jeferson Neil MD Brain MRI 11/27/17 0000 Signed Impressions: Service Date/Time: Monday, November 27, 2017 13:31 - CONCLUSION: No evidence of recurrent metastatic disease. Juan Valentin MD Last Impressions Chest X-Ray 11/27/17 1156 Signed Impressions: Service Date/Time: Monday, November 27, 2017 12:15 - CONCLUSION: The lungs are clear. Juan Valentin MD Head CT 11/27/17 0000 Signed Impressions: Service Date/Time: Monday, November 27, 2017 13:09 - CONCLUSION: 1. No acute hemorrhage or mass effect. 2. 3. Postsurgical changes status post left frontal craniotomy with area of apparent encephalomalacia or possible small calcification. 4. Post operative changes status post left occipital craniotomy with focal area of apparent encephalomalacia and scarring. Jeferson Neil MD Brain MRI 11/27/17 0000 Signed Impressions: Service Date/Time: Monday, November 27, 2017 13:31 - CONCLUSION: No evidence of recurrent metastatic disease. 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 She was previously hospitalized in August 2017 when the metastatic disease was initially found with a mass in the left frontal region and in the left cerebellar hemisphere. During that admission she underwent surgical resection of the two masses in two separate surgeries with pathology revealing metastatic melanoma. She has been following with Dr. Lynch for Oncology. She has been on Tremetinib and Dabrafinib. She had an [id number] placed following that admission. She reports that she has been having issues with her port since it was placed and reports that it has been evaluated in radiology twice per the pts . They report that they have had issues with malposition of the port. There has been attempts to access the port which has been problematic per the pt. But it was able to be accessed three days ago to draw blood out of it at Dr. Perez office. She was seen by Dr. Lynch on 11/25 and at that time was complaining of significant headaches and was being sent for an MRI of the brain. After that appt she fell at home. She reports that she lost her balance in the bathroom and fell and hit her head. She has been nauseated for the last 3 days and has not been eating much. Altered Mental Status Fever/chills, possible sepsis - The pt woke up on the morning of admission and was very confused, and didn' t know where she was or what was going on this morning, which prompted her evaluation in the ED for evaluation. - Pt was noted to have a fever upon arrival to the ED of 101 and has started shivering. - Her labs in the ED noted WBC count 3.9 with 23% bands. - Her CXR in the ED was clear. - Pts port was access a few days before symptoms of AMS and fever started so must consider port infection - Pt was given Vancomycin and cefepime in the ED - Overnight on 11/28 pt developed diarrhea, stool studies for C. diff were negative and stool culture is negative. Likely secondary to the antibiotics - Pt was seen by Dr. Lynch and a CT Chest/Abd/Pelvis was ordered. - Chest CT (11/28) --> There are areas of scarring in the lungs many right middle lobe with nonspecific right lower lobe nodule, repeat noncontrast chest CT is suggested in 6 months as a conservative follow up. - CT Abd/pelvis (11/28) --> Uterine fibroid and right ovarian cyst. Right acetabulum bone islands and no evidence for metastatic disease. - Dr. Lynch has recommended holding her Tremetinib and Dabrafinib for now as he is concerned that they could be contributing to her cytopenias - Monitor labs a clinical status - Blood cultures (11/27) with NGTD - Source of the fevers and AMS not clear, ?viral syndrome vs port infection vs. other - Pt was continued on Zosyn and Vancomycin at admission. Pt has been afebrile since 11/28/17 so we will stop the Vanc and Zosyn on 11/30/17 and de- escalate to oral antibiotics with Levaquin - If the pt develops any fevers, culture from the patients port is to be drawn - Pts LFTs noted to be elevated compared to previous, may be secondary to the antibiotics. Will continue to monitor with change in antibiotics. - 2D echo is pending - Telemetry - Tylenol PRN - Zofran PRN - Supportive care - DVT prophylaxis with SCDs for now BRAF positive metastatic melanoma - She has been following with Dr. Lynch for Oncology. - Appreciate consult from Dr. Lynch - She has been on Tremetinib and Dabrafinib, these are currently on hold per Oncology recommendations - Head CT (11/27) --> No acute hemorrhage or mass effect, postsurgical changes status post left frontal craniotomy with area of apparent encephalomalacia or possible small calcification, and post operative changes status post left occipital craniotomy with focal area of apparent encephalomalacia and scarring. - MRI of the brain (11/27) --> No evidence of recurrent metastatic disease. - Cont. home meds (2) Altered mental status ICD Codes: R41.82 - Altered mental status, unspecified Status: Acute (3) Melanoma ICD Codes: C43.9 - Malignant melanoma of skin, unspecified Status: Chronic Assessment and Plan Patient examined. Assessment and plan formulated with Shira Hines PA-C. I agree with the above. Pt has been afebrile x 48 hours. Leukocytosis resolved. No source of infection identified Will change antibiotic coverage to levaquin 500mg daily Observe pt overnight. IR to reevaluate port If pt remains afebrile and asymptomatic then anticipate discharge to home with [facility] 12/01/17 Problem Qualifiers (1) Altered mental status: Qualified Codes: R41.82 - Altered mental status, unspecified Shira Hines Nov 30, 2017 08:41 Eb Triana DO Nov 30, 2017 10:06
[2017-11-30] MEDS ORDERED: POTASSIUM CHLORIDE 10 MEQ CONTROLLED RELEASE TAB PO ONE (09:00)
[2017-11-30] MEDS: LEVOFLOXACIN 500 MG TAB PO SCH (09:55)
[2017-11-30] MEDS: levETIRAcetam 500 MG TAB PO SCH ×2 (09:55→21:59)
--- NOTE | 2017-11-30 11:23 | PD.ONC.PN ---
Subjective Subjective Remarks Afebrile overnight. "I feel much better today." Resting in bed in nad. Overall feeling improved. No longer confused. Worried about being off her Melanoma medications. Objective Data Date Time Temp Pulse Resp B/P (MAP) Pulse Ox O2 Delivery O2 Flow Rate FiO2 11/30/17 09:56 98.0 69 18 115/77 (90) 96 11/30/17 04:00 76 11/30/17 00:00 85 11/30/17 00:00 97.7 82 18 114/68 (83) 97 11/29/17 20:00 87 11/29/17 20:00 98.5 82 20 110/70 (83) 96 11/29/17 16:10 82 107/86 (93) 97 11/30/17 11/30/17 11/30/17 07:00 15:00 23:00 Intake Total 1460 ml Output Total 600 ml Balance 860 ml Result Diagram: 11/30/17 0613 11/30/17 0613 Laboratory Results Laboratory Tests Test 11/30/17 06:13 White Blood Count 5.9 TH/MM3 Red Blood Count 3.09 MIL/MM3 Hemoglobin 9.4 GM/DL Hematocrit 27.0 % Mean Corpuscular Volume 87.5 FL Mean Corpuscular Hemoglobin 30.6 PG Mean Corpuscular Hemoglobin Concent 34.9 % Red Cell Distribution Width 14.4 % Platelet Count 72 TH/MM3 Mean Platelet Volume 11.0 FL CBC Comment AUTO DIFF Differential Total Cells Counted 100 Neutrophils % (Manual) 22 % Band Neutrophils % 48 % Lymphocytes % 11 % Monocytes % 8 % Neutrophils # (Manual) 4.8 TH/MM3 Metamyelocytes 9 % Myelocytes 2 % Differential Comment FINAL DIFF MANUAL Platelet Estimate LOW Platelet Morphology Comment NORMAL Crenated Cell 1+ Haptoglobin 170 MG/DL Blood Urea Nitrogen 14 MG/DL Creatinine 0.70 MG/DL Random Glucose 118 MG/DL Total Protein 5.0 GM/DL Albumin 2.1 GM/DL Calcium Level 7.4 MG/DL Alkaline Phosphatase 144 U/L Aspartate Amino Transf (AST/SGOT) 99 U/L Alanine Aminotransferase (ALT/SGPT) 69 U/L Lactate Dehydrogenase 716 U/L Total Bilirubin 0.3 MG/DL Sodium Level 145 MEQ/L Potassium Level 3.3 MEQ/L Chloride Level 116 MEQ/L Carbon Dioxide Level 18.9 MEQ/L Anion Gap 10 MEQ/L Estimat Glomerular Filtration Rate 82 ML/MIN Protein Corrected Calcium 8.6 MG/DL Culture Results Microbiology Date/Time Source Procedure Growth Status 11/27/17 12:14 Blood Peripheral Aerobic Blood Culture - Preliminary NO GROWTH IN 3 DAYS Resulted 11/27/17 12:14 Blood Peripheral Anaerobic Blood Culture - Preliminary NO GROWTH IN 3 DAYS Resulted 11/27/17 12:08 Blood Peripheral Aerobic Blood Culture - Preliminary NO GROWTH IN 3 DAYS Resulted 11/27/17 12:08 Blood Peripheral Anaerobic Blood Culture - Preliminary NO GROWTH IN 3 DAYS Resulted 11/28/17 12:10 Stool Stool - Final NO ENTERIC PATHOGENS DETECTED BY PCR... Complete Administered Medications Medications (Trade) Dose Ordered Sig/Jose Manuel Route PRN Reason Start Time Stop Time Status Last Admin Dose Admin Acetaminophen (Tylenol) 650 mg Q4H PRN PO fever or pain 1-10 11/27/17 15:30 11/29/17 23:00 Levetriacetam (Keppra) 500 mg BID PO 11/27/17 21:00 11/30/17 09:55 Sodium Chloride 1,000 ml @ 80 mls/hr [id number] IV 11/27/17 16:00 11/30/17 00:08 Patient Own Medication PT OWN MED: TAFINLAR (DABRAFEN... BID@ PO 11/27/17 20:00 Future Hold 11/28/17 21:17 Patient Own Medication PT OWN MED: MEKIN... DAILY@1999 PO 11/27/17 20:00 Future Hold 11/28/17 21:21 Dronabinol (Marinol) 2.5 mg BID@16 PO 11/28/17 11:00 11/29/17 11:51 Dexamethasone (Decadron) 4 mg Q12HR PO 11/28/17 09:00 11/30/17 09:55 Loperamide HCl (Imodium) 2 mg Q4H PRN PO diarrhea 11/28/17 16:30 11/29/17 08:56 Levofloxacin (Levaquin) 500 mg DAILY PO 11/30/17 09:00 11/30/17 09:55 Objective Remarks GENERAL: Pleasant middle aged female, lying in bed in nad. SKIN: Warm and dry. HEAD: Normocephalic. EYES: No injection or drainage. NECK: Supple, trachea midline. CARDIOVASCULAR: Regular rate and rhythm RESPIRATORY: Breath sounds equal bilaterally. No accessory muscle use. GASTROINTESTINAL: Abdomen soft, non-tender, nondistended. EXTREMITIES: No cyanosis NEUROLOGICAL: awake and alert, normal speech. moving all extremities. Assessment/Plan Problem List: (1) Melanoma ICD Codes: C43.9 - Malignant melanoma of skin, unspecified Status: Chronic Plan: -- CT chest, abdomen and pelvis show NO recurrent or metastatic disease. Hx/Workup: Patient has a diagnosis of BRAF+ stage IV melanoma with metastases to the brain. She has received radiation treatments to the brain and is currently being treated with a BRAF inhibitor as well as a MAC inhibitor. She was seen in the outpatient clinic on 11/25 where she was having increased headaches. She was sent for an MRI of the brain however she was unable to get this done as she had a fall with altered mental status at home. This is what prompted her to come to the emergency room. MRI done in the ER shows no evidence of any recurrent disease. --currently on dabrafenib and trametinib. (on hold--meds may have caused her fall?) (2) Fever and chills ICD Codes: R50.9 - Fever, unspecified Status: Acute Plan: -- Blood cultures drawn on 11/27 show no growth 3 day --on PO Levaquin (3) Altered mental status ICD Codes: R41.82 - Altered mental status, unspecified Status: Acute Plan: -- On Keppra and Decadron -- Improving -- MRI Brain shows no new lesions. (4) Thrombocytopenia ICD Codes: D69.6 - Thrombocytopenia, unspecified Plan: --improving. Assessment 72y/o female with stage IV BRAF positive malignant melanoma with brain mets admitted with AMS. h/o Stage IV malignant melanoma with metastasis to the brain. Anxiety. Migraine headaches. Hyperlipidemia. h/o Suboccipital craniotomy with resection of the posterior fossa mass on 2016. Ventriculostomy tube placement as well, then she had removal on 2016. h/o Left frontal craniotomy and resection of neoplasm on 10/01/2017. h/o Excision of the melanoma from upper back in the spring. Plan 1. monitor CBC 2. continue to hold dabrafenib and trametinib 3. await IR evaluation of port. Problem Qualifiers (1) Altered mental status: Qualified Codes: R41.82 - Altered mental status, unspecified Chanel Wiggins Nov 30, 2017 11:22
[2017-11-30] MEDS: DRONABINOL 2.5 MG CAP PO SCH ×2 (13:28→16:27)
[2017-11-30] MEDS ORDERED: PHARMACY ORDERED LAB ONE (14:45)
--- NOTE | 2017-11-30 15:57 | ECHRPT ---
Indication: SEPSIS ENDOCARDITIS CONCLUSIONS Normal left ventricular size. Wall thickness is normal. The left ventricular systolic function is low normal with an estimated ejection fraction in the rang e of 50- 55%. Moderate mitral valve regurgitation. Trace aortic valve regurgitation. There is mild tricuspid valve regurgitation. The estimated pulmonary arterial pressure is 32.5 mmHg. BP: 92 / 53 HR: 99 Rhythm: MEASUREMENTS (Male / Female) Normal Values Technical Quality:Good 2D ECHO LV Diastolic Diameter PLAX 4.3 cm 4.2 - 5.9 / 3.9 - 5.3 cm LV Systolic Diameter PLAX 3.4 cm IVS Diastolic Thickness 0.7 cm 0.6 - 1.0 / 0.6 - 0.9 cm LVPW Diastolic Thickness 0.6 cm 0.6 - 1.0 / 0.6 - 0.9 cm LV Relative Wall Thickness 0.3 RV Internal Dim ED PLAX 1.9 cm LA Systolic Diameter LX 3.0 cm 3.0 - 4.0 / 2.7 - 3.8 cm M-MODE Aortic Root Diameter MM 2.7 cm AV Cusp Separation MM 1.7 cm DOPPLER Mitral E Point Velocity 68.1 cm/s Mitral A Point Velocity 86.9 cm/s Mitral E to A Ratio 0.8 TR Peak Velocity 262.0 cm/s TR Peak Gradient 27.5 mmHg Right Atrial Pressure 5.0 mmHg Pulmonary Artery Systolic Pressu 32.5 mmHg Right Ventricular Systolic Press 32.5 mmHg FINDINGS LEFT VENTRICLE Normal left ventricular size. Wall thickness is normal. The left ventricular systolic function is low normal with an estimated ejection fraction in the rang e of 50- 55%. RIGHT VENTRICLE Normal right ventricular size and systolic function. LEFT ATRIUM The left atrial size is normal. RIGHT ATRIUM The right atrial size is normal. ATRIAL SEPTUM Normal atrial septal thickness without atrial level shunting by limited color doppler interrogation. AORTA The aortic root and proximal ascending aorta are normal in size on limited imaging. MITRAL VALVE Moderate mitral valve regurgitation. AORTIC VALVE Trace aortic valve regurgitation. TRICUSPID VALVE There is mild tricuspid valve regurgitation. The estimated pulmonary arterial pressure is 32.5 mmHg. PULMONARY VALVE No pulmonary valve regurgitation or stenosis. VESSELS The inferior vena cava is normal in size. PERICARDIUM No pericardial effusion. Steve Oviedo MD, FACC (Electronically Signed) Final Date:30 November 2017 15:56
[2017-12-01] VITALS (11 sets, daily range): BP systolic 98–134; BP diastolic 58–91; PULSE 70–93; RESP 16–18; TEMP 97.5–98.6; O2SAT 93–98
[2017-12-01 07:03] LABS: BASOPHIL % 0.4 % (0.0-2.0); HEMOGLOBIN 10.2 GM/DL (11.6-15.3); LYMPH % 34.6 % (9.0-44.0); LYMPHOCYTE # 2.5 TH/MM3 (1.0-4.8); MEAN CELL VOLUME 87.4 FL (80.0-100.0); MEAN CORPUSCULAR HEMOGLOBIN 30.6 PG (27.0-34.0); MEAN PLATELET VOLUME 11.1 FL (7.0-11.0); MONO % 9.1 % (0.0-8.0); MONOCYTE # 0.7 TH/MM3 (0-0.9); NEUT % 55.9 % (16.0-70.0); PLATELET COUNT 90 TH/MM3 (150-450); RED BLOOD COUNT 3.32 MIL/MM3 (4.00-5.30); RED CELL DISTRIBUTION WIDTH 15.2 % (11.6-17.2); WHITE BLOOD COUNT 7.2 TH/MM3 (4.0-11.0)
[2017-12-01 07:11] LABS: ALBUMIN 2.4 GM/DL (3.4-5.0); AST (GOT) 84 U/L (15-37); BICARBONATE 23.4 MEQ/L (21.0-32.0); BLOOD UREA NITROGEN 12 MG/DL (7-18); CHLORIDE 112 MEQ/L (98-107); CREATININE 0.64 MG/DL (0.50-1.00); GLOMERULAR FILTRATION RATE 91 ML/MIN (>89); GLUCOSE,RANDOM 111 MG/DL (74-106); SODIUM (NA) 144 MEQ/L (136-145)
[2017-12-01 07:13] LABS: ALT (GPT) 72 U/L (10-53)
[2017-12-01 07:14] LABS: ALKALINE PHOSPHATASE 155 U/L (45-117); INTERNATIONAL NORMALIZED RATIO 1.1 RATIO; PROTHROMBIN TIME - PATIENT 11.5 SEC (9.8-11.6); TOTAL BILIRUBIN ADULT 0.3 MG/DL (0.2-1.0); TOTAL PROTEIN 5.6 GM/DL (6.4-8.2)
[2017-12-01 07:59] LABS: BANDS 24 % (0-6); LYMPHOCYTES 29 % (9-44); METAMYELOCYTES 3 % (0-1); MONOCYTES 7 % (0-8); NEUTROPHIL # MANUAL DIFF 4.6 TH/MM3 (1.8-7.7); POLYS (SEG NEUTROPHILS) 37 % (16-70)
--- NOTE | 2017-12-01 08:37 | HHI.PR ---
Subjective Remarks Pt had reported 6 BMs last night, the last one was loose but the previous ones were more solid Pt has remained afebrile She is to have port evaluation today Pts family has concerns about depression and continued lack of appetite. Dr. Lynch has discussed with the pt and family going to SNF at discharge and they are agreeable Objective Vitals Vital Signs Date Time Temp Pulse Resp B/P (MAP) Pulse Ox O2 Delivery O2 Flow Rate FiO2 12/01/17 04:12 97.5 82 16 116/86 (96) 98 12/01/17 00:35 97.9 77 18 117/80 (92) 96 11/30/17 21:52 98.6 84 16 111/72 (85) 96 11/30/17 20:38 87 11/30/17 16:29 98.2 16 110/72 (85) 97 110/72 (85) 11/30/17 13:37 97.7 74 18 124/86 (99) 98 11/30/17 09:56 98.0 69 18 115/77 (90) 96 Result Diagram: 12/01/17 0536 12/01/17 0536 Other Results Laboratory Tests Test 11/30/17 06:13 12/01/17 05:36 White Blood Count 5.9 TH/MM3 7.2 TH/MM3 Red Blood Count 3.09 MIL/MM3 3.32 MIL/MM3 Hemoglobin 9.4 GM/DL 10.2 GM/DL Hematocrit 27.0 % 29.0 % Mean Corpuscular Volume 87.5 FL 87.4 FL Mean Corpuscular Hemoglobin 30.6 PG 30.6 PG Mean Corpuscular Hemoglobin Concent 34.9 % 35.0 % Red Cell Distribution Width 14.4 % 15.2 % Platelet Count 72 TH/MM3 90 TH/MM3 Mean Platelet Volume 11.0 FL 11.1 FL CBC Comment AUTO DIFF AUTO DIFF Differential Total Cells Counted 100 100 Neutrophils % (Manual) 22 % 37 % Band Neutrophils % 48 % 24 % Lymphocytes % 11 % 29 % Monocytes % 8 % 7 % Neutrophils # (Manual) 4.8 TH/MM3 4.6 TH/MM3 Metamyelocytes 9 % 3 % Myelocytes 2 % Differential Comment FINAL DIFF MANUAL FINAL DIFF MANUAL Platelet Estimate LOW LOW Platelet Morphology Comment NORMAL NORMAL Crenated Cell 1+ Haptoglobin 170 MG/DL Blood Urea Nitrogen 14 MG/DL 12 MG/DL Creatinine 0.70 MG/DL 0.64 MG/DL Random Glucose 118 MG/DL 111 MG/DL Total Protein 5.0 GM/DL 5.6 GM/DL Albumin 2.1 GM/DL 2.4 GM/DL Calcium Level 7.4 MG/DL 8.0 MG/DL Alkaline Phosphatase 144 U/L 155 U/L Aspartate Amino Transf (AST/SGOT) 99 U/L 84 U/L Alanine Aminotransferase (ALT/SGPT) 69 U/L 72 U/L Lactate Dehydrogenase 716 U/L Total Bilirubin 0.3 MG/DL 0.3 MG/DL Sodium Level 145 MEQ/L 144 MEQ/L Potassium Level 3.3 MEQ/L 3.7 MEQ/L Chloride Level 116 MEQ/L 112 MEQ/L Carbon Dioxide Level 18.9 MEQ/L 23.4 MEQ/L Anion Gap 10 MEQ/L 9 MEQ/L Estimat Glomerular Filtration Rate 82 ML/MIN 91 ML/MIN Protein Corrected Calcium 8.6 MG/DL Neutrophils (%) (Auto) 55.9 % Lymphocytes (%) (Auto) 34.6 % Monocytes (%) (Auto) 9.1 % Eosinophils (%) (Auto) 0.0 % Basophils (%) (Auto) 0.4 % Neutrophils # (Auto) 4.0 TH/MM3 Lymphocytes # (Auto) 2.5 TH/MM3 Monocytes # (Auto) 0.7 TH/MM3 Eosinophils # (Auto) 0.0 TH/MM3 Basophils # (Auto) 0.0 TH/MM3 Prothrombin Time 11.5 SEC Prothromb Time International Ratio 1.1 RATIO Activated Partial Thromboplast Time 23.3 SEC Fibrinogen 112 mg/dL Imaging Last Impressions Chest CT 11/28/17 0000 Signed Impressions: Service Date/Time: Tuesday, November 28, 2017 17:02 - CONCLUSION: There are areas of scarring in the lungs many right middle lobe with nonspecific right lower lobe nodule, repeat noncontrast chest CT is suggested in 6 months as a conservative follow up. Anthony Fraga MD Abdomen/Pelvis CT 11/28/17 0000 Signed Impressions: Service Date/Time: Tuesday, November 28, 2017 17:02 - CONCLUSION: 1. Uterine fibroid and right ovarian cyst. 2. Right acetabulum bone islands and no evidence for metastatic disease. Anthony Fraga MD Chest X-Ray 11/27/17 1156 Signed Impressions: Service Date/Time: Monday, November 27, 2017 12:15 - CONCLUSION: The lungs are clear. Juan Valentin MD Head CT 11/27/17 0000 Signed Impressions: Service Date/Time: Monday, November 27, 2017 13:09 - CONCLUSION: 1. No acute hemorrhage or mass effect. 2. 3. Postsurgical changes status post left frontal craniotomy with area of apparent encephalomalacia or possible small calcification. 4. Post operative changes status post left occipital craniotomy with focal area of apparent encephalomalacia and scarring. Jeferson Neil MD Brain MRI 11/27/17 0000 Signed Impressions: Service Date/Time: Monday, November 27, 2017 13:31 - CONCLUSION: No evidence of recurrent metastatic disease. Juan Valentin MD Last Impressions Chest X-Ray 11/27/17 1156 Signed Impressions: Service Date/Time: Monday, November 27, 2017 12:15 - CONCLUSION: The lungs are clear. Juan Valentin MD Head CT 11/27/17 0000 Signed Impressions: Service Date/Time: Monday, November 27, 2017 13:09 - CONCLUSION: 1. No acute hemorrhage or mass effect. 2. 3. Postsurgical changes status post left frontal craniotomy with area of apparent encephalomalacia or possible small calcification. 4. Post operative changes status post left occipital craniotomy with focal area of apparent encephalomalacia and scarring. Jeferson Neil MD Brain MRI 11/27/17 0000 Signed Impressions: Service Date/Time: Monday, November 27, 2017 13:31 - CONCLUSION: No evidence of recurrent metastatic disease. 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 She was previously hospitalized in August 2017 when the metastatic disease was initially found with a mass in the left frontal region and in the left cerebellar hemisphere. During that admission she underwent surgical resection of the two masses in two separate surgeries with pathology revealing metastatic melanoma. She has been following with Dr. Lynch for Oncology. She has been on Tremetinib and Dabrafinib. She had an Ilhucv-v-aili placed following that admission. She reports that she has been having issues with her port since it was placed and reports that it has been evaluated in radiology twice per the pts . They report that they have had issues with malposition of the port. There has been attempts to access the port which has been problematic per the pt. But it was able to be accessed three days ago to draw blood out of it at Dr. Perez office. She was seen by Dr. Lynch on 11/25 and at that time was complaining of significant headaches and was being sent for an MRI of the brain. After that appt she fell at home. She reports that she lost her balance in the bathroom and fell and hit her head. She has been nauseated for the last 3 days and has not been eating much. Altered Mental Status Fever/chills, possible sepsis - The pt woke up on the morning of admission and was very confused, and didn' t know where she was or what was going on this morning, which prompted her evaluation in the ED for evaluation. - Pt was noted to have a fever upon arrival to the ED of 101 and has started shivering. - Her labs in the ED noted WBC count 3.9 with 23% bands. - Her CXR in the ED was clear. - Pts port was access a few days before symptoms of AMS and fever started so must consider port infection - Pt was given Vancomycin and cefepime in the ED - Overnight on 11/28 pt developed diarrhea, stool studies for C. diff were negative and stool culture is negative. Likely secondary to the antibiotics - Pt was seen by Dr. Lynch and a CT Chest/Abd/Pelvis was ordered. - Chest CT (11/28) --> There are areas of scarring in the lungs many right middle lobe with nonspecific right lower lobe nodule, repeat noncontrast chest CT is suggested in 6 months as a conservative follow up. - CT Abd/pelvis (11/28) --> Uterine fibroid and right ovarian cyst. Right acetabulum bone islands and no evidence for metastatic disease. - Dr. Lynch has recommended holding her Tremetinib and Dabrafinib for now as he is concerned that they could be contributing to her cytopenias - Monitor labs a clinical status - Blood cultures (11/27) with NGTD - Source of the fevers and AMS not clear, ?viral syndrome vs port infection vs. other - Pt was continued on Zosyn and Vancomycin at admission. Pt has been afebrile since 11/28/17 so the Vanc and Zosyn was stopped on 11/30/17 and Abx de- escalated to oral antibiotics with Levaquin. - Pt to have port evaluated today. Discussed with Chanel Wiggins PA-C, Dr. Lynch 's PA, about removing the port as the pt has had numerous issues with it and the port continues be in malposition/flipped. She will discuss with Dr. Lynch this morning. - Pts LFTs noted to be elevated compared to previous, may be secondary to the antibiotics. Will continue to monitor with change in antibiotics. - 2D echo (11/30/17) --> Estimated EF 50-55%, moderate mitral valve regurg, trace aortic valve regurg, mild tricuspid valve regurg, estimated PA pressure 32.5mmHg - Telemetry - Tylenol PRN - Zofran PRN - Supportive care - DVT prophylaxis with SCDs - Anticipate d/c to home later today depending on what happens with the pts port. BRAF positive metastatic melanoma - She has been following with Dr. Lynch for Oncology. - Appreciate consult from Dr. Lynch - She has been on Tremetinib and Dabrafinib, these are currently on hold per Oncology recommendations - Head CT (11/27) --> No acute hemorrhage or mass effect, postsurgical changes status post left frontal craniotomy with area of apparent encephalomalacia or possible small calcification, and post operative changes status post left occipital craniotomy with focal area of apparent encephalomalacia and scarring. - MRI of the brain (11/27) --> No evidence of recurrent metastatic disease. - Cont. home meds (2) Altered mental status ICD Codes: R41.82 - Altered mental status, unspecified Status: Acute (3) Melanoma ICD Codes: C43.9 - Malignant melanoma of skin, unspecified Status: Chronic Assessment and Plan Patient examined. Assessment and plan formulated with Shira Hines PA-C. I agree with the above. - Case d/w Dr. Lynch (12/01/17) - Will remove port today with IR. Replace port in the future if needed. - No fever for 3d. Observe for fever following port removal. - pt/family debating home with C vs SNF. - weight gain? Not sure this is accurate. No change in oxygen requirements. - obtain repeat CXR in AM - minimally elevated LFTs. Maybe d/t antibiotics. Repeat LFTs 12/07/17. Problem Qualifiers (1) Altered mental status: Qualified Codes: R41.82 - Altered mental status, unspecified Shira Hines Dec 01, 2017 08:37 Eb Triana DO Dec 01, 2017 10:10
[2017-12-01] MEDS ORDERED: MIDAZOLAM HCL 2 MG/2 ML VIAL ONE (10:19)
--- NOTE | 2017-12-01 10:44 | PD.RAD ---
Post Procedure Progress Note Pre Procedure Diagnosis: (1) Brain mass (2) SIRS (systemic inflammatory response syndrome) Post Procedure Diagnosis: (1) Brain mass (2) SIRS (systemic inflammatory response syndrome) Procedure Date: Dec 01, 2017 Supervising Radiologist: Fran Ireland Estimated blood loss: 2cc Anesthesia: Local, Conscious Sedation Plan of Activity Patient to Unit: ROPU Patient Condition: Good Additional Comments: Port removed from the right chest due to pain and dificulty with access. Pt. tolerated the procedure well. Full dictated report to follow See PACS Report for procedural detail/treatment Fran Ireland MD Dec 01, 2017 10:44
--- NOTE | 2017-12-01 11:41 | RADRPT ---
EXAM DATE/TIME: 12/01/2017 00:00 [facility] COMPARISON: [facility] ACCESS DEV PAT W/SVC, November 04, 2017, 15:50. INDICATIONS : Patient presents with pain and discomfort from port, in need of removal. MEDICAL HISTORY : Anxiety Metastatic melanoma Migraine SURGICAL HISTORY : Suboccipital craniectomy with resection of the posterior fossa lesion on 09/24/17 Ventriculostomy tube placed and removed on 09/28/17 Left frontal craniotomy for resection of neoplasm on 10/01/17 Excision of melanoma from [facility] 2013 Facial plastic surgery Biopsy in 2016 Colonoscopy in 2009 ENCOUNTER: Initial ACUITY: 1 month PAIN SCORE: 0/10 SEDATION TIME: 5 minutes 1.) 2 mg midazolam (Versed) IV 2.) 100 mcg fentanyl (Sublimaze) IV Prophylactic antibiotics were administered with appropriate pre-procedure timing. Vancomycin within 2 hrs of procedure, Ancef (or alternative) within 1 hr of procedure. PROCEDURE : 1. Removal of Shfhwk-j-ncxr. 2. Conscious sedation with continuous EKG and oximetry monitoring. The patient is a 72-year-old who underwent Hhjstz-q-Svsr placement 10/20/17. The patient has experien rosey intermittent pain ever since the port placement. There have been several episodes of difficult ac cess of the Rucynu-l-Zjsh. The decision was made to remove the port. The risk, benefits and potential complications of Gwrfrj-b-Tpdr removal were discussed. Written consent was obtained. The patient was placed supine. The chest wall was prepped in sterile fashion. Full sterile techniqu e was used, including cap, mask, sterile gloves and gown, and a large sterile sheet. Hand hygiene an d 2% chlorhexidine and/or Betadine/alcohol prep was utilized per protocol for cutaneous antisepsis. The skin and subcutaneous tissues were infiltrated with local anesthetic solution. A small incision w as made, the subcutaneous pocket was opened. The port was dissected from the subcutaneous tissues and easily removed in one piece. The pocket incision was closed with subcuticular Vicryl suture. Steri -Strips were applied. Conscious sedation was performed with the prescribed dosages and duration as above in the presence of an independent trained radiology nurse to assist in the monitoring of the patient. EKG and oximetry remained stable throughout the procedure. The patient tolerated the procedure well and there were no complications. The patient was sent to post anesthesia recovery in stable condition. CONCLUSION: Uncomplicated port removal as above. Fran Ireland MD on December 01, 2017 at 11:38 Board Certified Radiologist. This report was verified electronically.
--- NOTE | 2017-12-01 12:44 | PD.ONC.PN ---
Subjective Subjective Remarks Afebrile overnight. Patient resting in room. Just back from having port removed. No complaints. Objective Data Date Time Temp Pulse Resp B/P (MAP) Pulse Ox O2 Delivery O2 Flow Rate FiO2 12/01/17 12:27 97.8 86 18 134/91 (105) 97 12/01/17 11:55 93 18 124/85 (98) 93 12/01/17 11:10 71 16 102/79 (87) 93 12/01/17 10:55 97.6 71 16 110/78 (89) 94 12/01/17 08:21 97.9 82 18 122/90 (101) 98 12/01/17 07:00 84 12/01/17 04:12 97.5 82 16 116/86 (96) 98 12/01/17 00:35 97.9 77 18 117/80 (92) 96 11/30/17 21:52 98.6 84 16 111/72 (85) 96 11/30/17 20:38 87 11/30/17 16:29 98.2 16 110/72 (85) 97 110/72 (85) 11/30/17 13:37 97.7 74 18 124/86 (99) 98 Result Diagram: 12/01/17 0536 12/01/17 0536 Laboratory Results Laboratory Tests Test 12/01/17 05:36 White Blood Count 7.2 TH/MM3 Red Blood Count 3.32 MIL/MM3 Hemoglobin 10.2 GM/DL Hematocrit 29.0 % Mean Corpuscular Volume 87.4 FL Mean Corpuscular Hemoglobin 30.6 PG Mean Corpuscular Hemoglobin Concent 35.0 % Red Cell Distribution Width 15.2 % Platelet Count 90 TH/MM3 Mean Platelet Volume 11.1 FL Neutrophils (%) (Auto) 55.9 % Lymphocytes (%) (Auto) 34.6 % Monocytes (%) (Auto) 9.1 % Eosinophils (%) (Auto) 0.0 % Basophils (%) (Auto) 0.4 % Neutrophils # (Auto) 4.0 TH/MM3 Lymphocytes # (Auto) 2.5 TH/MM3 Monocytes # (Auto) 0.7 TH/MM3 Eosinophils # (Auto) 0.0 TH/MM3 Basophils # (Auto) 0.0 TH/MM3 CBC Comment AUTO DIFF Differential Total Cells Counted 100 Neutrophils % (Manual) 37 % Band Neutrophils % 24 % Lymphocytes % 29 % Monocytes % 7 % Neutrophils # (Manual) 4.6 TH/MM3 Metamyelocytes 3 % Differential Comment FINAL DIFF MANUAL Platelet Estimate LOW Platelet Morphology Comment NORMAL Prothrombin Time 11.5 SEC Prothromb Time International Ratio 1.1 RATIO Activated Partial Thromboplast Time 23.3 SEC Fibrinogen 112 mg/dL Blood Urea Nitrogen 12 MG/DL Creatinine 0.64 MG/DL Random Glucose 111 MG/DL Total Protein 5.6 GM/DL Albumin 2.4 GM/DL Calcium Level 8.0 MG/DL Alkaline Phosphatase 155 U/L Aspartate Amino Transf (AST/SGOT) 84 U/L Alanine Aminotransferase (ALT/SGPT) 72 U/L Total Bilirubin 0.3 MG/DL Sodium Level 144 MEQ/L Potassium Level 3.7 MEQ/L Chloride Level 112 MEQ/L Carbon Dioxide Level 23.4 MEQ/L Anion Gap 9 MEQ/L Estimat Glomerular Filtration Rate 91 ML/MIN Imaging Studies Last 24 hours Impressions Port Line Revision 12/01/17 0000 Signed Impressions: Service Date/Time: Friday, December 01, 2017 00:00 - CONCLUSION: Uncomplicated port removal as above. Fran Ireland MD Administered Medications Medications (Trade) Dose Ordered Sig/Jose Manuel Route PRN Reason Start Time Stop Time Status Last Admin Dose Admin Acetaminophen (Tylenol) 650 mg Q4H PRN PO fever or pain 1-11/27/17 15:30 11/29/17 23:00 Levetriacetam (Keppra) 500 mg BID PO 11/27/17 21:00 11/30/17 21:59 Patient Own Medication PT OWN MED: TAFINLAR (DABRAFEN... BID@ PO 11/27/17 20:00 Future hold 11/28/17 21:17 Patient Own Medication PT OWN MED: MEKIN... DAILY@1999 PO 11/27/17 20:00 Future hold 11/28/17 21:21 Dronabinol (Marinol) 2.5 mg BID@,16 PO 11/28/17 11:00 11/30/17 16:27 Dexamethasone (Decadron) 4 mg Q12HR PO 11/28/17 09:00 11/30/17 21:59 Loperamide HCl (Imodium) 2 mg Q4H PRN PO diarrhea 11/28/17 16:30 11/29/17 08:56 Levofloxacin (Levaquin) 500 mg DAILY PO 11/30/17 09:00 11/30/17 09:55 Objective Remarks GENERAL: Pleasant female, supine in bed, resting SKIN: Warm and dry. large bandage, right chest wall, c/d/i. HEAD: Normocephalic. EYES: No injection or drainage. NECK: Supple, trachea midline. CARDIOVASCULAR: Regular rate and rhythm RESPIRATORY: Breath sounds equal bilaterally. No accessory muscle use. GASTROINTESTINAL: Abdomen soft, non-tender, nondistended. EXTREMITIES: No cyanosis NEUROLOGICAL: awake, alert. normal speech. Assessment/Plan Problem List: (1) Melanoma ICD Codes: C43.9 - Malignant melanoma of skin, unspecified Status: Chronic Plan: -- CT chest, abdomen and pelvis show NO recurrent or metastatic disease. Hx/Workup: Patient has a diagnosis of BRAF+ stage IV melanoma with metastases to the brain. She has received radiation treatments to the brain and is currently being treated with a BRAF inhibitor as well as a MAC inhibitor. She was seen in the outpatient clinic on 11/25 where she was having increased headaches. She was sent for an MRI of the brain however she was unable to get this done as she had a fall with altered mental status at home. This is what prompted her to come to the emergency room. MRI done in the ER shows no evidence of any recurrent disease. --currently on dabrafenib and trametinib. (meds resumed 12/01) (2) Fever and chills ICD Codes: R50.9 - Fever, unspecified Status: Acute Plan: -- Blood cultures drawn on 11/27 show no growth 4 day --on PO Levaquin (3) Altered mental status ICD Codes: R41.82 - Altered mental status, unspecified Status: Acute Plan: -- On Keppra and Decadron -- Improving -- MRI Brain shows no new lesions. (4) Thrombocytopenia ICD Codes: D69.6 - Thrombocytopenia, unspecified Plan: --improving. Assessment 72y/o female with stage IV BRAF positive malignant melanoma with brain mets admitted with AMS. h/o Stage IV malignant melanoma with metastasis to the brain. Anxiety. Migraine headaches. Hyperlipidemia. h/o Suboccipital craniotomy with resection of the posterior fossa mass on 2016. Ventriculostomy tube placement as well, then she had removal on 2016. h/o Left frontal craniotomy and resection of neoplasm on 10/01/2017. h/o Excision of the melanoma from upper back in the spring. Plan 1. monitor CBC 2. resume dabrafenib and trametinib 3. ok to d/c to rehab. follow up in clinic in 1 week. Problem Qualifiers (1) Altered mental status: Qualified Codes: R41.82 - Altered mental status, unspecified Chanel Wiggins Dec 01, 2017 12:44
[2017-12-01] MEDS: DEXAMETHASONE 4 MG TAB PO SCH ×2 (12:47→20:24)
[2017-12-01] MEDS: DRONABINOL 2.5 MG CAP PO SCH ×2 (12:47→16:58)
[2017-12-01] MEDS: levETIRAcetam 500 MG TAB PO SCH ×2 (12:48→20:24)
[2017-12-01] MEDS: LEVOFLOXACIN 500 MG TAB PO SCH (12:48)
[2017-12-01] MEDS: LOPERAMIDE HCL 2 MG CAP PO PRN (14:38)
[2017-12-01] MEDS: TAFINLAR 75 MG PO SCH (20:23)
[2017-12-01] MEDS: MEKINIST 2 MG PO SCH (20:40)
[2017-12-01] MEDS ORDERED: MIRTAZAPINE 15 MG TAB PO SCH (21:00)
[2017-12-02 04:21] VITALS: BP 104/66; PULSE 87; RESP 16; TEMP 98.6; O2SAT 96
[2017-12-02 04:40] LABS: CREATININE 0.7 MG/DL (0.50-1.00)
[2017-12-02 08:00] VITALS: BP 121/80; PULSE 83; RESP 18; TEMP 98.4; O2SAT 99
--- NOTE | 2017-12-02 10:05 | HHI.DS ---
Discharge Summary Admission Date Nov 27, 2017 at 14:58 Discharge Date: Dec 02, 2017 Admitting Diagnosis altered mental status, fever of unknown etiology, cancer patient (1) Fever and chills Diagnosis: Principal ICD Codes: R50.9 - Fever, unspecified Status: Acute (2) Altered mental status Diagnosis: Principal ICD Codes: R41.82 - Altered mental status, unspecified Status: Acute (3) Melanoma Diagnosis: Secondary ICD Codes: C43.9 - Malignant melanoma of skin, unspecified Status: Chronic Consultants Dr. Bird Lynch, Oncology Brief History Mrs. 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 She was previously hospitalized in August 2017 when the metastatic disease was initially found with a mass in the left frontal region and in the left cerebellar hemisphere. During that admission she underwent surgical resection of the two masses in two separate surgeries with pathology revealing metastatic melanoma. She has been following with Dr. Lynch for Oncology. She has been on Tremetinib and Dabrafinib. She had an [id number] placed following that admission. She reports that she has been having issues with her port since it was placed and reports that it has been evaluated in radiology twice per the pts . They report that they have had issues with malposition of the port. There has been attempts to access the port which has been problematic per the pt. But it was able to be accessed three days ago to draw blood out of it at Dr. Perez office. She was seen by Dr. Lynch on 11/25 and at that time was complaining of significant headaches and was being sent for an MRI of the brain. After that appt she fell at home. She reports that she lost her balance in the bathroom and fell and hit her head. She has been nauseated for the last 3 days and has not been eating much. Denies any cough, congestion, sore throat, diarrhea, abdominal pain. This morning the pt was very confused, didn't know where she was or what was going on this morning. Her brought her to the ED for evaluation. Pt was noted to have a fever upon arrival to the ED today and has started shivering. Her labs in the ED noted WBC count 3.9 with 23% bands. Her CXR in the ED was clear. Head CT noted no acute hemorrhage or mass effect, postsurgical changes status post left frontal craniotomy with area of apparent encephalomalacia or possible small calcification, and post operative changes status post left occipital craniotomy with focal area of apparent encephalomalacia and scarring. . MRI of the brain was performed in the ED with no evidence of recurrent metastatic disease. CBC/BMP: 12/01/17 0536 12/02/17 0345 Significant Findings Laboratory Tests Test 11/30/17 06:13 12/01/17 05:36 12/02/17 03:45 Red Blood Count 3.09 MIL/MM3 (4.00-5.30) 3.32 MIL/MM3 (4.00-5.30) Hemoglobin 9.4 GM/DL (11.6-15.3) 10.2 GM/DL (11.6-15.3) Hematocrit 27.0 % (35.0-46.0) 29.0 % (35.0-46.0) Platelet Count 72 TH/MM3 (150-450) 90 TH/MM3 (150-450) Band Neutrophils % 48 % (0-6) 24 % (0-6) Metamyelocytes 9 % (0-1) 3 % (0-1) Myelocytes 2 % (0-0) Platelet Estimate LOW (NORMAL) LOW (NORMAL) Crenated Cell 1+ (NORMAL) Random Glucose 118 MG/DL (74-106) 111 MG/DL (74-106) Total Protein 5.0 GM/DL (6.4-8.2) 5.6 GM/DL (6.4-8.2) Albumin 2.1 GM/DL (3.4-5.0) 2.4 GM/DL (3.4-5.0) Calcium Level 7.4 MG/DL (8.5-10.1) 8.0 MG/DL (8.5-10.1) Alkaline Phosphatase 144 U/L (45-117) 155 U/L (45-117) Aspartate Amino Transf (AST/SGOT) 99 U/L (15-37) 84 U/L (15-37) Alanine Aminotransferase (ALT/SGPT) 69 U/L (10-53) 72 U/L (10-53) Lactate Dehydrogenase 716 U/L (84-246) Potassium Level 3.3 MEQ/L (3.5-5.1) Chloride Level 116 MEQ/L (98-107) 112 MEQ/L (98-107) Carbon Dioxide Level 18.9 MEQ/L (21.0-32.0) Estimat Glomerular Filtration Rate 82 ML/MIN (>89) 82 ML/MIN (>89) Mean Platelet Volume 11.1 FL (7.0-11.0) Monocytes (%) (Auto) 9.1 % (0.0-8.0) Activated Partial Thromboplast Time 23.3 SEC (24.3-30.1) Fibrinogen 112 mg/dL (227-377) Imaging Last Impressions Port Line Revision 12/01/17 0000 Signed Impressions: Service Date/Time: Friday, December 01, 2017 00:00 - CONCLUSION: Uncomplicated port removal as above. Fran Ireland MD Chest CT 11/28/17 0000 Signed Impressions: Service Date/Time: Tuesday, November 28, 2017 17:02 - CONCLUSION: There are areas of scarring in the lungs many right middle lobe with nonspecific right lower lobe nodule, repeat noncontrast chest CT is suggested in 6 months as a conservative follow up. Anthony Fraga MD Abdomen/Pelvis CT 11/28/17 0000 Signed Impressions: Service Date/Time: Tuesday, November 28, 2017 17:02 - CONCLUSION: 1. Uterine fibroid and right ovarian cyst. 2. Right acetabulum bone islands and no evidence for metastatic disease. Anthony Fraga MD Chest X-Ray 11/27/17 1156 Signed Impressions: Service Date/Time: Monday, November 27, 2017 12:15 - CONCLUSION: The lungs are clear. Juan Valentin MD Head CT 11/27/17 0000 Signed Impressions: Service Date/Time: Monday, November 27, 2017 13:09 - CONCLUSION: 1. No acute hemorrhage or mass effect. 2. 3. Postsurgical changes status post left frontal craniotomy with area of apparent encephalomalacia or possible small calcification. 4. Post operative changes status post left occipital craniotomy with focal area of apparent encephalomalacia and scarring. Jeferson Neil MD Brain MRI 11/27/17 0000 Signed Impressions: Service Date/Time: Monday, November 27, 2017 13:31 - CONCLUSION: No evidence of recurrent metastatic disease. 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 She was previously hospitalized in August 2017 when the metastatic disease was initially found with a mass in the left frontal region and in the left cerebellar hemisphere. During that admission she underwent surgical resection of the two masses in two separate surgeries with pathology revealing metastatic melanoma. She has been following with Dr. Lynch for Oncology. She has been on Tremetinib and Dabrafinib. She had an [id number] placed following that admission. She reports that she has been having issues with her port since it was placed and reports that it has been evaluated in radiology twice per the pts . They report that they have had issues with malposition of the port. There has been attempts to access the port which has been problematic per the pt. But it was able to be accessed three days ago to draw blood out of it at Dr. Perez office. She was seen by Dr. Lynch on 11/25 and at that time was complaining of significant headaches and was being sent for an MRI of the brain. After that appt she fell at home. She reports that she lost her balance in the bathroom and fell and hit her head. She has been nauseated for the last 3 days and has not been eating much. Altered Mental Status Fever/chills, possible sepsis - The pt woke up on the morning of admission and was very confused, and didn' t know where she was or what was going on this morning, which prompted her evaluation in the ED for evaluation. - Pt was noted to have a fever upon arrival to the ED of 101 and has started shivering. - Her labs in the ED noted WBC count 3.9 with 23% bands. - Her CXR in the ED was clear. - Pts port was access a few days before symptoms of AMS and fever started so must consider port infection - Pt was given Vancomycin and cefepime in the ED - Overnight on 11/28 pt developed diarrhea, stool studies for C. diff were negative and stool culture is negative. Likely secondary to the antibiotics - Pt was seen by Dr. Lynch and a CT Chest/Abd/Pelvis was ordered. - Chest CT (11/28) --> There are areas of scarring in the lungs many right middle lobe with nonspecific right lower lobe nodule, repeat noncontrast chest CT is suggested in 6 months as a conservative follow up. - CT Abd/pelvis (11/28) --> Uterine fibroid and right ovarian cyst. Right acetabulum bone islands and no evidence for metastatic disease. - Dr. Lynch has recommended holding her Tremetinib and Dabrafinib for now as he is concerned that they could be contributing to her cytopenias - Monitor labs a clinical status - Blood cultures (11/27) with NGTD - Source of the fevers and AMS not clear, ?viral syndrome vs port infection vs. other - Pt was continued on Zosyn and Vancomycin at admission. Pt has been afebrile since 11/28/17 so the Vanc and Zosyn was stopped on 11/30/17 and Abx de- escalated to oral antibiotics with Levaquin. - Port removed (12/01/17) by IR - Pts LFTs noted to be elevated compared to previous, may be secondary to the antibiotics. Will continue to monitor with change in antibiotics. - 2D echo (11/30/17) --> Estimated EF 50-55%, moderate mitral valve regurg, trace aortic valve regurg, mild tricuspid valve regurg, estimated PA pressure 32.5mmHg - discharge to SNF (12/02/17) - see discharge orders BRAF positive metastatic melanoma - She has been following with Dr. Lynch for Oncology. - Appreciate consult from Dr. Lynch - She has been on Tremetinib and Dabrafinib, these are currently on hold per Oncology recommendations - Head CT (11/27) --> No acute hemorrhage or mass effect, postsurgical changes status post left frontal craniotomy with area of apparent encephalomalacia or possible small calcification, and post operative changes status post left occipital craniotomy with focal area of apparent encephalomalacia and scarring. - MRI of the brain (11/27) --> No evidence of recurrent metastatic disease. - Cont. home meds (2) Altered mental status ICD Codes: R41.82 - Altered mental status, unspecified Status: Acute - resolved (3) Melanoma ICD Codes: C43.9 - Malignant melanoma of skin, unspecified Status: Chronic - mgmt per Oncology Pt Condition on Discharge: Stable Discharge Disposition: Discharge to SNF Discharge Instructions DIET: Follow Instructions for: Heart Healthy Diet Activities you can perform: Weight Bearing as Eb Esqueda DO Dec 02, 2017 10:05
--- NOTE | 2017-12-02 10:08 | RADRPT ---
EXAM DATE/TIME: 12/02/2017 08:55 [facility] COMPARISON: CHEST EXPIRATION ONLY, November 12, 2017, 13:47. INDICATIONS : Short of breath and cough. MEDICAL HISTORY : Cardiovascular disease. Macular degeneration, Melanoma SURGICAL HISTORY : None. ENCOUNTER: Subsequent ACUITY: 4 - 6 days PAIN SCORE: 0/10 LOCATION: Bilateral chest FINDINGS: The cardiac silhouette is normal in transverse diameter. The lungs are free of acute parenchymal opac ity. No effusions are identified. The background interstitium is prominent though this is likely grease worker jasbir in nature. CONCLUSION: 1. No acute cardiopulmonary disease. Cong Norman MD on December 02, 2017 at 10:05 Board Certified Radiologist. This report was verified electronically.
[2017-12-02] MEDS ORDERED: MIRTA15 PO (10:13)
[2017-12-02] MEDS ORDERED: LEVA500T33 PO (10:13)
--- NOTE | 2017-12-02 10:16 | HHI.DCPOC ---
Discharge Care Plan Diagnosis: (1) Fever of unknown origin (2) Altered mental status (3) Melanoma Goals to Promote Your Health * To prevent worsening of your condition and complications * To maintain your health at the optimal level Directions to Meet Your Goals Take your medications as prescribed Follow your dietary instruction Follow activity as directed Keep your appointments as scheduled Take your immunizations and boosters as scheduled If your symptoms worsen call your PCP, if no PCP go to Urgent Care Center or Emergency Room Smoking is Dangerous to Your Health. Avoid second hand smoke Call the 24-hour hour crisis hotline for domestic abuse at Eb Triana DO Dec 02, 2017 10:16
[2017-12-02] MEDS: DRONABINOL 2.5 MG CAP PO SCH (10:22)
[2017-12-02] MEDS: DEXAMETHASONE 4 MG TAB PO SCH (10:22)
[2017-12-02] MEDS: levETIRAcetam 500 MG TAB PO SCH (10:23)
[2017-12-02] MEDS: LEVOFLOXACIN 500 MG TAB PO SCH (10:23)
[2017-12-02] MEDS: TAFINLAR 75 MG PO SCH (10:25)
== END 2017-12-02 12:45 | DRG 864 ==
LOC: NEPE 11:19 → NEDA 14:58 → N05A 16:06 → HCIN 11-29 15:46 → HCPC 12-01 19:20
PROVIDERS: ADMIT Hospitalist; ATTEND Hospitalist
PROC: 0JPT0WZ Removal of Totally Implantable Vascular Access Device from Trunk Subcutaneous Tissue and Fascia, Open Approach (ICD-10-PCS; principal; 2017-12-01)
PROC: 02PY33Z Removal of Infusion Device from Great Vessel, Percutaneous Approach (ICD-10-PCS; 2017-12-01)
DX: R50.9 Fever, unspecified (principal); C79.31 Secondary malignant neoplasm of brain; R65.10 Systemic inflammatory response syndrome (SIRS) of non-infectious origin without acute organ dysfunction; D69.6 Thrombocytopenia, unspecified; T82.524A Displacement of infusion catheter, initial encounter; K52.1 Toxic gastroenteritis and colitis; R41.82 Altered mental status, unspecified; R00.0 Tachycardia, unspecified; E78.5 Hyperlipidemia, unspecified; F41.9 Anxiety disorder, unspecified; R91.1 Solitary pulmonary nodule; R62.7 Adult failure to thrive; R42 Dizziness and giddiness; T36.95XA Adverse effect of unspecified systemic antibiotic, initial encounter; W19.XXXA Unspecified fall, initial encounter; D72.829 Elevated white blood cell count, unspecified; Z92.3 Personal history of irradiation; Z85.820 Personal history of malignant melanoma of skin; Z88.5 Allergy status to narcotic agent; Y92.012 Bathroom of single-family (private) house as the place of occurrence of the external cause
CPT/HCPCS: 36590; 36591; 70450; 70553; 71010; 71046; 71260; 74177; 80048; 80053; 81001; 82550; 82565; 83010; 83605; 83615; 83735; 84155; 84443; 84484; 85007; 85025; 85027; 85384; 85610; 85730; 87040; 87493; 87506; 93005; 93306; 96361; 96365; 96375; 99152; 99212; 99214; A9579; G0463; J0692; J1642; J2250; J2405; J2543; J3010; J3370; J7030; J7050; J8540; Q0167; Q9963; Q9967